=== PATIENT | female | born 1940 | race Caucasian/White ===

== ENCOUNTER 2017-12-20 23:29 | Emergency (ER) | payer MEDICARE, OTHER ==
[~2017-12-20] VITALS: Ht 152.4 cm; Wt 102.1 kg
[~2017-12-20 23:29] MED LIST: ALBU90OI INH; ALBU90OI6 INH; AZIT250 PO; BENZ100A PO; BP MED; CEPH500 PO; CODGUAEL PO; CYAN1000I IM; CYAN1000I INJ; Cheratussin AC118 ML PO; DULERA 100 MCG/13 GM INH; FLUSAL2505 INH; FLUSAL5005 INH; Flonase 0.05% N16 GM; HYDRA50 PO; HYDRALAZINE HCL PO; LEVSOD100 PO; LOVA20; LOVA40; LOVA40 PO; Levaquin500 MG PO; MECL25 PO; METF500 PO; METO50 PO; METO50ER PO; OXYC5 PO; PRED20 PO; Prednisone10 MG PO; Prednisone50 MG PO; Roxicodone5 MG PO; Synthroid100 MCG; TIOT18; TIOT18 INH; TRAM50 PO; Vibramycin100 MG PO; WARF3 PO; WARF4 PO; Zithromax250 MG PO; Zofran Odt4 MG SL
[2017-12-21] MEDS ORDERED: CLOP75 PO (02:18)
[2017-12-21 02:26] LABS: Source, Urine Clean Catch
[2017-12-21 02:27] LABS: Bilirubin, Urine Neg (Neg); Blood, Urine 5+ (Neg); Glucose Qualitative, Urine Neg (Neg); Ketones, Urine 1+ (Neg); Leukocyte Esterase, Urine 1+ (Neg); Nitrite, Urine Neg (Neg); Protein, Urine 2+ (Neg); Specific Gravity, Urine 1.025 (1.003-1.022); Urobilinogen, Urine NORM (Normal)
[2017-12-21 02:33] LABS: Appearance, Urine Hazy (Clear); Bacteria Rare /hpf; Color, Urine Yellow (P-Yellow); Red Blood Cells, Urine TNTC /hpf (0-2); Squamous Epithelial Cells Rare /hpf (Few); White Blood Cells, Urine 0-2 /hpf (0-5)
[2017-12-21 02:41] LABS: BASOPHILS ABSOLUTE AUTO 0.03 K/mm3 (0.00-0.23); BASOPHILS PERCENT AUTO 1 % (0-2); EOSINOPHILS ABSOLUTE AUTO 0.01 K/mm3 (0.00-0.68); EOSINOPHILS PERCENT AUTO 0 % (0-6); Hematocrit 34.8 % (33.0-51.0); Hemoglobin 10.9 g/dL (11.5-16.0); IMMATURE GRAN ABSOLUTE AUTO 0.03 K/mm3 (0.00-0.10); IMMATURE GRAN PERCENT AUTO 1 % (0-1); LYMPHOCYTES ABSOLUTE AUTO 0.63 K/mm3 (0.84-5.20); LYMPHOCYTES PERCENT AUTO 10 % (21-46); MONOCYTES ABSOLUTE AUTO 0.57 K/mm3 (0.16-1.47); MONOCYTES PERCENT AUTO 9 % (4-13); Mean Corpuscular HGB 29.1 pg (26.0-34.0); Mean Corpuscular HGB Conc 31.3 g/dL (31.5-36.5); Mean Corpuscular Volume 93 fL (80-100); Mean Platelet Volume 9.2 fL (9.1-12.4); NEUTROPHILS PERCENT AUTO 79 % (41-73); Platelet Count 190 K/mm3 (150-400); RDW Coefficient Variation 13.4 % (11.7-14.2); RDW Standard Deviation 45.7 fL (35.1-46.3); Red Blood Cell Count 3.74 M/mm3 (3.80-5.20); White Blood Cell Count 6.17 K/mm3 (4.00-11.30)
[2017-12-21 02:56] LABS: Alanine Aminotransfer (ALT/SGP 16 U/L (12-78); Albumin, Blood 3.2 g/dL (3.4-5.0); Albumin/Globulin Ratio 0.9 (0.8-1.8); Alk Phos 81 U/L (50-136); Anion Gap 5 mmol/L (6-16); Aspartate Aminotrans (AST/SGOT 18 U/L (12-37); Bilirubin, Total 0.4 mg/dL (0.1-1.0); Blood Urea Nitrogen 11 mg/dL (8-24); Bun/Creatinine Ratio 11.6 (12.0-20.0); CO2, Blood 31 mmol/L (21-32); Calcium, Blood 8.5 mg/dL (8.5-10.1); Chloride, Blood 105 mmol/L (98-108); Creatinine, Blood 0.95 mg/dL (0.40-1.00); Globulin, Blood 3.6 g/dL (2.2-4.0); Glomerular Filtration Rate >60 (60-); Glucose, Blood 125 mg/dL (70-99); Potassium, Blood 4.1 mmol/L (3.5-5.5); Sodium, Blood 141 mmol/L (136-145); Total Protein, Blood 6.8 g/dL (6.4-8.2)
[2017-12-21] MEDS ORDERED: Flomax0.4 MG PO (06:14)
[2017-12-21] MEDS ORDERED: Percocet 5-3251 EACH PO (06:14)
[2017-12-21] MEDS ORDERED: Ultram50 MG PO (06:53)
== END 2017-12-21 07:12 | disposition home or self-care (01) ==
LOC: ER 23:29
PROVIDERS: Emergency Medicine
DX: N13.2 Hydronephrosis with renal and ureteral calculous obstruction (principal); J44.9 Chronic obstructive pulmonary disease, unspecified; Z91.048 Other nonmedicinal substance allergy status; Z91.030 Bee allergy status; Z88.0 Allergy status to penicillin; Z88.5 Allergy status to narcotic agent; Z88.8 Allergy status to other drugs, medicaments and biological substances; Z88.4 Allergy status to anesthetic agent; Z79.899 Other long term (current) drug therapy
CPT/HCPCS: 74176; 80053; 81001; 85025; 87086; 96374; 99284; J1885

== ENCOUNTER 2018-07-26 18:01 | Emergency (ER) | payer MEDICARE, OTHER ==
[~2018-07-26] VITALS: Ht 157.5 cm; Wt 99.8 kg
[~2018-07-26 18:01] MED LIST changes: +CLOP75 PO; +Flomax0.4 MG PO; +Percocet 5-3251 EACH PO; +Ultram50 MG PO
[2018-07-26 18:52] LABS: BASOPHILS ABSOLUTE AUTO 0.02 K/mm3 (0.00-0.23); BASOPHILS PERCENT AUTO 1 % (0-2); EOSINOPHILS ABSOLUTE AUTO 0.27 K/mm3 (0.00-0.68); EOSINOPHILS PERCENT AUTO 9 % (0-6); Hematocrit 34.9 % (33.0-51.0); Hemoglobin 10.6 g/dL (11.5-16.0); IMMATURE GRAN ABSOLUTE AUTO 0.01 K/mm3 (0.00-0.10); IMMATURE GRAN PERCENT AUTO 0 % (0-1); LYMPHOCYTES ABSOLUTE AUTO 0.75 K/mm3 (0.84-5.20); LYMPHOCYTES PERCENT AUTO 24 % (21-46); MONOCYTES ABSOLUTE AUTO 0.55 K/mm3 (0.16-1.47); MONOCYTES PERCENT AUTO 17 % (4-13); Mean Corpuscular HGB 27.9 pg (26.0-34.0); Mean Corpuscular HGB Conc 30.4 g/dL (31.5-36.5); Mean Corpuscular Volume 92 fL (80-100); Mean Platelet Volume 8.9 fL (9.1-12.4); NEUTROPHILS ABSOLUTE AUTO 1.56 K/mm3 (1.96-9.15); NEUTROPHILS PERCENT AUTO 50 % (41-73); Platelet Count 163 K/mm3 (150-400); RDW Coefficient Variation 13.5 % (11.7-14.2); RDW Standard Deviation 45.9 fL (35.1-46.3); White Blood Cell Count 3.16 K/mm3 (4.00-11.30)
[2018-07-26 19:23] LABS: Albumin, Blood 3.3 g/dL (3.4-5.0); Albumin/Globulin Ratio 0.9 (0.8-1.8); Bilirubin, Total 0.4 mg/dL (0.1-1.0); Bun/Creatinine Ratio 17.4 (12.0-20.0); Calcium, Blood 8.5 mg/dL (8.5-10.1); Creatinine, Blood 1.09 mg/dL (0.40-1.00); Globulin, Blood 3.5 g/dL (2.2-4.0); Potassium, Blood 4.4 mmol/L (3.5-5.5); Total Protein, Blood 6.8 g/dL (6.4-8.2)
[2018-07-26] MEDS ORDERED: Zithromax250 MG PO (19:34)
[2018-07-26] MEDS ORDERED: Ultram50 MG PO (19:34)
== END 2018-07-26 19:54 | disposition home or self-care (01) ==
LOC: ER 18:01
PROVIDERS: Emergency Medicine
DX: S00.83XA Contusion of other part of head, initial encounter (principal); S60.222A Contusion of left hand, initial encounter; S60.012A Contusion of left thumb without damage to nail, initial encounter; S50.811A Abrasion of right forearm, initial encounter; J40 Bronchitis, not specified as acute or chronic; J44.9 Chronic obstructive pulmonary disease, unspecified; Z91.048 Other nonmedicinal substance allergy status; Z91.030 Bee allergy status; Z88.0 Allergy status to penicillin; Z88.6 Allergy status to analgesic agent; Z88.8 Allergy status to other drugs, medicaments and biological substances; Z79.899 Other long term (current) drug therapy; Z79.01 Long term (current) use of anticoagulants; Z79.51 Long term (current) use of inhaled steroids; W19.XXXA Unspecified fall, initial encounter
CPT/HCPCS: 70450; 71046; 73130; 80053; 85025; 99284-25

== ENCOUNTER 2018-07-27 17:53 | Emergency (ER) | payer MEDICARE, OTHER ==
[~2018-07-27] VITALS: Ht 157.5 cm; Wt 99.8 kg
== END 2018-07-27 18:24 | disposition home or self-care (01) ==
LOC: ER 17:53
DX: S52.592A Other fractures of lower end of left radius, initial encounter for closed fracture (principal); S52.612A Displaced fracture of left ulna styloid process, initial encounter for closed fracture; J44.9 Chronic obstructive pulmonary disease, unspecified; Z91.048 Other nonmedicinal substance allergy status; Z91.030 Bee allergy status; Z88.0 Allergy status to penicillin; Z88.8 Allergy status to other drugs, medicaments and biological substances; Z88.6 Allergy status to analgesic agent; Z79.899 Other long term (current) drug therapy; X58.XXXA Exposure to other specified factors, initial encounter
CPT/HCPCS: 29105; 99283-25

== ENCOUNTER 2018-08-05 19:40 | Emergency (ER) | payer MEDICARE, OTHER ==
[~2018-08-05] VITALS: Ht 152.4 cm; Wt 98.0 kg
[2018-08-05 20:09] LABS: BASOPHILS ABSOLUTE AUTO 0.02 K/mm3 (0.00-0.23); BASOPHILS PERCENT AUTO 0 % (0-2); EOSINOPHILS PERCENT AUTO 4 % (0-6); Hemoglobin 11.1 g/dL (11.5-16.0); IMMATURE GRAN ABSOLUTE AUTO 0.02 K/mm3 (0.00-0.10); IMMATURE GRAN PERCENT AUTO 0 % (0-1); LYMPHOCYTES ABSOLUTE AUTO 0.97 K/mm3 (0.84-5.20); LYMPHOCYTES PERCENT AUTO 20 % (21-46); MONOCYTES ABSOLUTE AUTO 0.53 K/mm3 (0.16-1.47); MONOCYTES PERCENT AUTO 11 % (4-13); Mean Corpuscular HGB 27.8 pg (26.0-34.0); Mean Corpuscular HGB Conc 30.8 g/dL (31.5-36.5); Mean Corpuscular Volume 90 fL (80-100); Mean Platelet Volume 9.1 fL (9.1-12.4); NEUTROPHILS ABSOLUTE AUTO 3.02 K/mm3 (1.96-9.15); NEUTROPHILS PERCENT AUTO 64 % (41-73); Platelet Count 222 K/mm3 (150-400); RDW Coefficient Variation 13.1 % (11.7-14.2); RDW Standard Deviation 43.3 fL (35.1-46.3); Red Blood Cell Count 3.99 M/mm3 (3.80-5.20); White Blood Cell Count 4.76 K/mm3 (4.00-11.30)
[2018-08-05 20:24] LABS: Albumin, Blood 3.4 g/dL (3.4-5.0); Albumin/Globulin Ratio 0.9 (0.8-1.8); Bilirubin, Total 0.3 mg/dL (0.1-1.0); Bun/Creatinine Ratio 14.4 (12.0-20.0); Creatinine, Blood 1.04 mg/dL (0.40-1.00); Globulin, Blood 3.8 g/dL (2.2-4.0); Potassium, Blood 3.9 mmol/L (3.5-5.5); Total Protein, Blood 7.2 g/dL (6.4-8.2)
[2018-08-06] MEDS ORDERED: Levaquin500 MG PO (00:56)
[2018-08-06 00:57] LABS: Influenza A Negative (NEGATIVE); Influenza B Negative (NEGATIVE)
== END 2018-08-06 01:15 | disposition home or self-care (01) ==
LOC: ER 19:40
PROVIDERS: Emergency Medicine
DX: R06.02 Shortness of breath (principal); R05 Cough; J44.9 Chronic obstructive pulmonary disease, unspecified; Z91.09 Other allergy status, other than to drugs and biological substances; Z91.048 Other nonmedicinal substance allergy status; Z88.0 Allergy status to penicillin; Z88.6 Allergy status to analgesic agent; Z88.8 Allergy status to other drugs, medicaments and biological substances; Z91.030 Bee allergy status; Z88.4 Allergy status to anesthetic agent; Z79.899 Other long term (current) drug therapy; Z79.51 Long term (current) use of inhaled steroids
CPT/HCPCS: 36415; 71046; 80053; 85025; 87804; 99283-25

== ENCOUNTER 2019-03-11 07:29 | Emergency (ER) | payer MEDICARE, OTHER ==
[~2019-03-11] VITALS: Ht 154.9 cm; Wt 99.8 kg
[2019-03-11] MEDS ORDERED: XARELTO20 MG PO (07:47)
[2019-03-11] MEDS ORDERED: SOLI5 PO (07:47)
[2019-03-11] MEDS ORDERED: SYNTHROID112 MCG PO (07:48)
[2019-03-11] MEDS ORDERED: LETR2.5 PO (07:49)
[2019-03-11] MEDS ORDERED: Cyclobenzaprine5 MG PO (08:09)
[2019-03-11] MEDS ORDERED: LIDO700A20 TOP (08:09)
[2019-03-11] MEDS ORDERED: MOTION RELIEF25 MG PO (08:13)
== END 2019-03-11 08:31 | disposition home or self-care (01) ==
LOC: ER 07:29
DX: M62.830 Muscle spasm of back (principal); Z91.048 Other nonmedicinal substance allergy status; Z88.8 Allergy status to other drugs, medicaments and biological substances; Z88.0 Allergy status to penicillin; Z88.1 Allergy status to other antibiotic agents; Z91.030 Bee allergy status; Z88.6 Allergy status to analgesic agent; Z79.899 Other long term (current) drug therapy; J44.9 Chronic obstructive pulmonary disease, unspecified
CPT/HCPCS: 99283

== ENCOUNTER 2019-05-26 10:30 | Day surgery (SDC) | payer MEDICARE, OTHER ==
[~2019-05-26] VITALS: Ht 157.5 cm; Wt 96.8 kg
[~2019-05-26 10:30] MED LIST changes: +Cyclobenzaprine5 MG PO; +LETR2.5 PO; +LIDO700A20 TOP; +MOTION RELIEF25 MG PO; +SOLI5 PO; +SYNTHROID112 MCG PO; +XARELTO20 MG PO
--- NOTE | 2019-05-26 11:42 | NUR ---
05/26/19 1142 Aisha Puentes NO [place] JELLY WAS USED DURING THIS PROCEDURE DUE TO THE PATIENTS SEVERE ALLERGY. DR WEST WAS INFORMED AND HE ASKED FOR LIDOCAINE JELLY, WHICH I PULLED FROM THE XIS AND WE COMPARED THE INGREDIENTS AND HE IS CONFIDENT THERE SHOULD BE NO PROBLEMS THE INGREDIENTS ARE DIFFERENT SO PROCEDURE WAS COMPLETED USING LIDOCAINE JELLY IN PLACE OF THE [place] JELLY
== END 2019-05-26 12:36 | disposition home or self-care (01) ==
LOC: ORSCSDS 10:30
PROVIDERS: Internal Medicine Gastroenterology
PROC: 0DB58ZX Excision of Esophagus, Via Natural or Artificial Opening Endoscopic, Diagnostic (ICD-10-PCS; principal; 2019-05-26 11:45)
PROC: 0DB68ZX Excision of Stomach, Via Natural or Artificial Opening Endoscopic, Diagnostic (ICD-10-PCS; principal; 2019-05-26 11:45)
PROC: 0D758ZZ Dilation of Esophagus, Via Natural or Artificial Opening Endoscopic (ICD-10-PCS; principal; 2019-05-26 11:45)
DX: R13.10 Dysphagia, unspecified (principal); K29.70 Gastritis, unspecified, without bleeding; K22.2 Esophageal obstruction; K44.9 Diaphragmatic hernia without obstruction or gangrene; I10 Essential (primary) hypertension; J44.9 Chronic obstructive pulmonary disease, unspecified; Z99.81 Dependence on supplemental oxygen; E78.00 Pure hypercholesterolemia, unspecified; Z79.899 Other long term (current) drug therapy
CPT/HCPCS: 88305; 88342; C1726; J2704; J7120

== ENCOUNTER 2019-06-26 18:17 | Emergency (ER) | payer MEDICARE, OTHER ==
[~2019-06-26] VITALS: Ht 152.4 cm; Wt 94.8 kg
[2019-06-26 18:39] LABS: BASOPHILS ABSOLUTE AUTO 0.01 K/mm3 (0.00-0.23); BASOPHILS PERCENT AUTO 0 % (0-2); EOSINOPHILS ABSOLUTE AUTO 0.22 K/mm3 (0.00-0.68); EOSINOPHILS PERCENT AUTO 4 % (0-6); Hematocrit 32.8 % (33.0-51.0); Hemoglobin 9.7 g/dL (11.5-16.0); IMMATURE GRAN ABSOLUTE AUTO 0.01 K/mm3 (0.00-0.10); IMMATURE GRAN PERCENT AUTO 0 % (0-1); LYMPHOCYTES ABSOLUTE AUTO 0.77 K/mm3 (0.84-5.20); LYMPHOCYTES PERCENT AUTO 15 % (21-46); MONOCYTES ABSOLUTE AUTO 0.38 K/mm3 (0.16-1.47); MONOCYTES PERCENT AUTO 8 % (4-13); Mean Corpuscular HGB 25.9 pg (26.0-34.0); Mean Corpuscular HGB Conc 29.6 g/dL (31.5-36.5); Mean Corpuscular Volume 88 fL (80-100); Mean Platelet Volume 9.1 fL (9.1-12.4); NEUTROPHILS ABSOLUTE AUTO 3.61 K/mm3 (1.96-9.15); NEUTROPHILS PERCENT AUTO 72 % (41-73); Platelet Count 215 K/mm3 (150-400); RDW Standard Deviation 48.3 fL (35.1-46.3); Red Blood Cell Count 3.75 M/mm3 (3.80-5.20)
[2019-06-26 18:56] LABS: Albumin, Blood 3.2 g/dL (3.4-5.0); Albumin/Globulin Ratio 0.8 (0.8-1.8); Bilirubin, Total 0.2 mg/dL (0.1-1.0); Calcium, Blood 9.1 mg/dL (8.5-10.1); Creatinine, Blood 1.27 mg/dL (0.40-1.00); Globulin, Blood 3.9 g/dL (2.2-4.0); Potassium, Blood 4.2 mmol/L (3.5-5.5); Total Protein, Blood 7.1 g/dL (6.4-8.2)
[2019-06-26 19:20] LABS: Source, Urine Clean Catch
[2019-06-26 19:27] LABS: Bilirubin, Urine Neg (Neg); Blood, Urine 4+ (Neg); Glucose Qualitative, Urine Neg (Neg); Ketones, Urine Neg (Neg); Leukocyte Esterase, Urine 3+ (Neg); Nitrite, Urine Pos (Neg); Protein, Urine 2+ (Neg); Urobilinogen, Urine NORM (Normal)
[2019-06-26 19:42] LABS: Appearance, Urine Clear (Clear); Color, Urine Yellow (P-Yellow)
[2019-06-26 19:44] LABS: Bacteria Many /hpf; Red Blood Cells, Urine 50-100 /hpf (0-2); Squamous Epithelial Cells Not Seen /hpf (Few); White Blood Cells, Urine 50-100 /hpf (0-5)
[2019-06-26] MEDS ORDERED: CEPH500 PO (20:38)
[2019-06-27] MEDS ORDERED: Cephalexin500 MG PO (23:59)
== END 2019-06-26 21:00 | disposition home or self-care (01) ==
LOC: ER 18:17
PROVIDERS: Physician Assistant
DX: N39.0 Urinary tract infection, site not specified (principal); J44.9 Chronic obstructive pulmonary disease, unspecified; Z88.0 Allergy status to penicillin; Z79.899 Other long term (current) drug therapy
CPT/HCPCS: 36415; 74177; 80053; 81001; 83690; 85025; 87077; 87086; 87186; 96374-59; 99284-25; J2405; Q9967

== ENCOUNTER 2019-06-27 19:22 | Observation (INO) | payer MEDICARE, OTHER ==
[~2019-06-27] VITALS: Ht 152.4 cm; Wt 94.0 kg
[2019-06-27] MEDS ORDERED: Cephalexin500 MG PO (23:59)
--- NOTE | 2019-06-28 00:35 | NUR ---
PT ARRIVES TO ICU 12 VIA GURNEY FROM ER. STATES THAT SHE IS VERY INDEPENDENT AND REQUESTS TO STAND TO TRANSFER TO BED. STANDS TO TRANSFER WITH STEADY GAIT AND TOLERATES WELL. SHE STATES THAT HER THROAT IS SORE AND THAT THE PAIN IS TOLERABLE WHEN SHE IS NOT COUGHING OR SPEAKING, SHE RATES 3-4/10 AT REST. VOICE QUALITY IS HOARSE, PT IS NOTED TO SPEAK IN FULL SENTANCES, NO INCREASED WORK OF BREATHING IS NOTED WITH STAND TO TRANSFER TO BED, PT DOES INTERMITTENTLY COUGH AND PRODUCE ORAL SECRETIONS THAT SHE SPITS INTO EMESIS BAG IN SMALL AMOUNTS, LUNGS ARE CLEAR THROUGHOUT, SATS ARE MAINTAINING WITH OXYGEN AT 2 L/MIN VIA NC. HRR, SINUS ON MONITOR, OCCASIONAL PVC IS NOTED, BLOOD PRESSURE IS MAINTAINING, NO EDEMA IS NOTED, CAP REFILL IS BRISK, PULSES ARE FULL X 4 EXTREMITIES, HYPERPIGMENTATION IS NOTED BILATERAL LOWER EXTREMITIES. ABD DISTENDED AND SOFT, ACTIVE BOWEL TONES ARE NOTED, NO GUARDING WITH PALPATION. PLAN OF CARE EXPLAINED TO PT AND GRANDDAUGHTER, UNDERSTANDING IS VERBALIZED.
[2019-06-28] MEDS ORDERED: VITAMIN D35000 UNIT PO (01:03)
[2019-06-28] MEDS ORDERED: CALCIUM PO (01:04)
[2019-06-28 03:34] LABS: Bun/Creatinine Ratio 17.2 (12.0-20.0); Calcium, Blood 8.2 mg/dL (8.5-10.1); Creatinine, Blood 1.16 mg/dL (0.40-1.00); Potassium, Blood 4.4 mmol/L (3.5-5.5)
--- NOTE | 2019-06-28 06:50 | NUR ---
PT NEW ADMIT THIS SHIFT FOR ANGIOEDEMA FOLLOWING RECENT KEFLEX RX FOR UTI. SWELLING TO UPPER LIP HAS IMPROVED SINCE ADMISSION AT WHICH TIME PT AND GRANDDAUGHTER BOTH REPORTED THAT THE SWELLING WAS MARKEDLY IMPROVED FROM ARRIVAL TO ER. PT STATES THAT SWALLOWING IS IMPROVING BUT THAT SHE HAS ONLY BEEN ABLE TO SWALLOW VERY SMALL SIPS OF WATER OCCASIONALLY, SHE REQUESTED LEVOTHROID BE HELD FOR A COUPLE OF HOURS THIS AM SHE WOULD LIKE TO TAKE MEDICATION BUT DOES NOT FEEL COMFORTABLE SWALLOWING ANYTHING WITH MORE CONSISTENCY THAN WATER AT THIS TIME. VOICE QUALITY REMAINS HOARSE AND PT REPORTS SORE THROAT WITH ATTEMPT TO SPEAK OR COUGH, CEPACOL LOZENGES WERE REQUESTED AND ORDERED, PT TOLERATED WELL AND REPORTS IMPROVED PAIN CONTROL FOLLOWING ADMINISTRATION. SHE DENIES A HISTORY OF OBSTRUCTIVE SLEEP APNEA ALTHOUGH SHE STATES THAT SHE DOES SNORE, BRIEF PERIODS OF APNEA ARE NOTED THIS SHIFT. LUNGS REMAIN CLEAR THROUGHOUT, SATS ARE MID TO UPPER 90S WITH OXYGEN AT HOME FLOW RATE OF 2 L/MIN VIA NC WHILE PT IS AWAKE, NOTED TO DECREASE TO 80S FOR DURATIONS LESS THAN 20 SECONDS WITH SLEEP, TITRATED OXYGEN UP TO 3 L/MIN WITH IMPROVED SATS TO 90S WITH SLEEP. HRR, OCCASIONAL PVCS ARE NOTED, PRESSURE MAINTAINING. ABD SOFT, PT CONTINUES TO DENY NAUSEA. UP TO TOILET WITH LIMP NOTED TO RIGHT LOWER EXTREMITY, TOLERATES WELL WITH STANDBY ASSIST AND VOIDS CLEAR MEL URINE.
--- NOTE | 2019-06-28 09:27 | NUR ---
PT UP TO COMMODE WITH MINIMAL ASSIST TO VOID. NO REAL RESP DISTRESS NOTED AND PT REMAINS ON HER NC AT 3L. PT HAS SOME HARSHNESS TO HER VOICE BUT INDICATES THAT HER THROAT FEELS BETTER AND ONLY HAS A FEELING OF SWELLING IN HER HASAL PASSAGES. VSS. DECLINES PO MEDS AT THIS TIME.
--- NOTE | 2019-06-28 12:02 | NUR ---
PT IS SWALLOWING SMALL AMOUNTS OF LIQUID AND PUDDING IN AN EFFORT TO GET PO MEDS DOWN. SHE WILL COUGH DUE TO MEDS NOT PASSING THROUGH NARROW AREA IN THROAT BUT IS NOT "CHOKING" ON LIQUIDS OR MEDS. PT WILL PROCCED SLOWLY AND WILL MONITOR PER THIS RN. PT IS GETTING UP AND DOWN TO TOILET W/O DISTRESS.
--- NOTE | 2019-06-28 15:41 | NUR ---
REPORT CALLED TO [facility]IS MANUEL PRESSLEY ON SURG. FLOOR AND WILL TRANSPORT TO 229 VIA W/C MANUEL.
--- NOTE | 2019-06-28 16:40 | NUR ---
1630 PT TO SURG FLOOR VIA W/C WITH C/O DIFFICULTY BREATHING AND NO NEW EVIDENCE OF CHANGES AT THIS TIME.
--- NOTE | 2019-06-28 16:52 | NUR ---
PT ARRIVED TO ROOM FROM ICU STATES FEEL LIKES "THINGS ARE GOING BACKWARDS." STATES HAVING INCREASED DIFFICULTY SWALLOWING, FEELS SOB, HANDS ARE SHAKING AND VISION IS BLURRED. LUNGS CLEAR BUT DIM IN BASES. PT HOARSE BUT ABLE TO SPEAK IN COMPLETE SENTENCES. HRR. BTX4. DEMONSTRATED DIFFICULTY SWALLOWING WATER, STATED TOOK SEVERAL ATTEMPTS TO GET SIP DOWN. NOW RESTING IN BED, TEXTING FAMILY. CALL LIGHT IN REACH.
--- NOTE | 2019-06-28 17:30 | NUR ---
CALLED DR NASCIMENTO REGARDING PT'S CONCERNS RELAYED TO DR NASCIMENTO PT BELIEVED SYMPTOMS WORSENING AFTER REC'D IV CIPRO. ORDERS OBTAINED TO CHANGE TO PO MACROBID. PT BECAME ANGRY WHEN ADVISED THAT DR NASCIMENTO CHANGING TO PO ANTIBIOTICS. STATED SHE WOULD NOT TAKE A PILL BECAUSE SHE DOES NOT BELIEVE SHE CAN SWALLOW IT. ADVISED PT CHOICES ARE LIMITED DUE TO HX OF MULTIPLE ANTIBIOTIC ALLERGIES. ADVISED PT SHE WOULD RECEIVE ANOTHER DOSE OF SOLUMEDROL (WHICH WAS GIVEN PER EMAR) AND ANOTHER DOSE OF BENADRYL THIS EVENING. PT MAY REFUSE PILL DEPENDING ON ABILITY TO SWALLOW AT TIME IT IS ADMINISTERED. RELAYED PT'S CONCERN ABOUT PO ANTIBIOTIC TO DR NASCIMENTO.
--- NOTE | 2019-06-28 18:06 | NUR ---
SWELLING UNDER TONGUE PT REPORTED FEELS SWOLLEN UNDER TONGUE. REPORTS BREATHING IMPROVED AFTER BREATHING TREATMENT AND IS ABLE TO SWALLOW TOMATO SOUP. DOES NOT APPEAR TO BE HAVING ANY DIFFICULTY BREATHING AT THIS TIME.
--- NOTE | 2019-06-29 06:02 | NUR ---
PT VSS T/O NIGHT. SATS >90% ON 2LNC. PT DENIED SOB OR SWALLOWING DIFFICULTY. NO SWELLING NOTED IN FACE OR TONGUE, VOICE REMAINS HOARSE. NO ADVERSE EFFECTS REPORTED AFTER TAKING MACROBID THIS PM. PT VOIDING ORANGE URINE, PT DENIES PAIN W/VOID. PT UP OOB W/WALKER +SBA, YRN WELL. PT USING CALL LIGHT FOR ASSISTANCE, WILL CONT TO MONITOR UNTIL REP GIVEN TO DAY RN.
[2019-06-29 09:50] LABS: BASOPHILS PERCENT AUTO 0 % (0-2); EOSINOPHILS PERCENT AUTO 0 % (0-6); Hematocrit 31.8 % (33.0-51.0); Hemoglobin 9.7 g/dL (11.5-16.0); IMMATURE GRAN ABSOLUTE AUTO 0.01 K/mm3 (0.00-0.10); IMMATURE GRAN PERCENT AUTO 0 % (0-1); LYMPHOCYTES ABSOLUTE AUTO 0.27 K/mm3 (0.84-5.20); LYMPHOCYTES PERCENT AUTO 10 % (21-46); MONOCYTES ABSOLUTE AUTO 0.27 K/mm3 (0.16-1.47); MONOCYTES PERCENT AUTO 10 % (4-13); Mean Corpuscular HGB 25.5 pg (26.0-34.0); Mean Corpuscular HGB Conc 30.5 g/dL (31.5-36.5); Mean Platelet Volume 9.5 fL (9.1-12.4); NEUTROPHILS ABSOLUTE AUTO 2.08 K/mm3 (1.96-9.15); NEUTROPHILS PERCENT AUTO 79 % (41-73); Platelet Count 183 K/mm3 (150-400); RDW Coefficient Variation 15.5 % (11.7-14.2); RDW Standard Deviation 47.4 fL (35.1-46.3); White Blood Cell Count 2.63 K/mm3 (4.00-11.30)
[2019-06-29 09:51] LABS: Mean Corpuscular Volume 84 fL (80-100)
[2019-06-29] MEDS ORDERED: ALBU90OI INH (18:07)
[2019-06-29] MEDS ORDERED: BENADRYL25 MG PO (18:07)
[2019-06-29] MEDS ORDERED: CEPACOL SORE T1 EACH (18:07)
[2019-06-29] MEDS ORDERED: Florastor250 MG PO (18:08)
[2019-06-29] MEDS ORDERED: Prednisone10 MG PO (18:08)
[2019-06-29] MEDS ORDERED: NITR100CA PO (18:08)
[2019-06-29] MEDS ORDERED: FAMO40 PO (18:08)
[2019-06-29] MEDS ORDERED: TROSPIUM CHLORI20 MG PO (18:09)
== END 2019-06-29 19:31 | disposition home or self-care (01) ==
LOC: ER 19:22 → ICUW 23:46 → SURS 23:46 → ICUW 06-28 00:24 → SURS 06-28 16:50
PROVIDERS: Family Medicine; ADMIT Hospitalist
DX: T78.3XXA Angioneurotic edema, initial encounter (principal); T36.1X5A Adverse effect of cephalosporins and other beta-lactam antibiotics, initial encounter; J44.9 Chronic obstructive pulmonary disease, unspecified; E03.9 Hypothyroidism, unspecified; N39.0 Urinary tract infection, site not specified; B96.1 Klebsiella pneumoniae [K. pneumoniae] as the cause of diseases classified elsewhere; I10 Essential (primary) hypertension; D64.9 Anemia, unspecified; I82.409 Acute embolism and thrombosis of unspecified deep veins of unspecified lower extremity; Z88.6 Allergy status to analgesic agent; Z88.0 Allergy status to penicillin; Z88.8 Allergy status to other drugs, medicaments and biological substances; Z88.1 Allergy status to other antibiotic agents; Z79.899 Other long term (current) drug therapy
CPT/HCPCS: 36415; 80048; 85025; 94640; 94760; 96365; 96366; 96372-59; 96374; 96375; 96376; 99285-25; G0378; J0171; J0744; J1200; J2060; J2930

== ENCOUNTER → 2019-10-13 | Outpatient (CLI) | payer MEDICARE, OTHER ==
[~2019-10-13] MED LIST changes: +BENADRYL25 MG PO; +CALCIUM PO; +CEPACOL SORE T1 EACH; +Cephalexin500 MG PO; +FAMO40 PO; +Florastor250 MG PO; +NITR100CA PO; +TROSPIUM CHLORI20 MG PO; +VITAMIN D35000 UNIT PO
== END | disposition home or self-care (01) ==
LOC: LAB 17:45 → LAB SHORT 17:45
DX: J02.9 Acute pharyngitis, unspecified (principal)
CPT/HCPCS: 87081

== ENCOUNTER 2021-04-22 18:04 | Emergency (ER) | payer MEDICARE, OTHER ==
[~2021-04-22] VITALS: Ht 152.4 cm; Wt 77.1 kg
== END 2021-04-22 21:52 | disposition home or self-care (01) ==
LOC: ER 18:04
DX: R22.0 Localized swelling, mass and lump, head (principal); R06.02 Shortness of breath; T47.4X5A Adverse effect of other laxatives, initial encounter; J44.9 Chronic obstructive pulmonary disease, unspecified; Z88.1 Allergy status to other antibiotic agents; Z88.0 Allergy status to penicillin; Z79.01 Long term (current) use of anticoagulants
CPT/HCPCS: 96374; 96375; 99284-25; J1200; J2930

== ENCOUNTER 2021-07-21 17:23 | Emergency (ER) | payer MEDICARE, OTHER ==
[~2021-07-21] VITALS: Ht 157.5 cm; Wt 72.1 kg
[2021-07-21] MEDS ORDERED: ONDA4ODT MM (17:48)
[2021-07-21] MEDS ORDERED: Tessalon Perle100 MG PO (17:48)
== END 2021-07-21 20:02 | disposition home or self-care (01) ==
LOC: ER 17:23
DX: U07.1 COVID-19 (principal); J44.9 Chronic obstructive pulmonary disease, unspecified; E03.9 Hypothyroidism, unspecified; Z23 Encounter for immunization; Z91.048 Other nonmedicinal substance allergy status; Z88.1 Allergy status to other antibiotic agents; Z88.6 Allergy status to analgesic agent; Z88.0 Allergy status to penicillin; Z91.030 Bee allergy status; Z79.899 Other long term (current) drug therapy; Z99.81 Dependence on supplemental oxygen; Z86.718 Personal history of other venous thrombosis and embolism
CPT/HCPCS: 96361; 96375; 99284-25; A9270; J2405; M0243; Q0243

== ENCOUNTER → 2021-12-29 | Outpatient (CLI) | payer MEDICARE, OTHER ==
[~2021-12-29] MED LIST changes: +ONDA4ODT MM; +Tessalon Perle100 MG PO
== END ==
LOC: LAB SHORT 15:00
DX: R30.9 Painful micturition, unspecified (principal)
CPT/HCPCS: 87086

== ENCOUNTER → 2022-01-13 | Outpatient (CLI) | payer MEDICARE, OTHER | END | disposition home or self-care (01) | LOC: LAB SHORT 14:20 | DX: R35.0 Frequency of micturition (principal) | CPT/HCPCS: 87086 ==

== ENCOUNTER 2022-09-17 12:49 | Emergency (ER) | payer MEDICARE, OTHER ==
[~2022-09-17] VITALS: Ht 152.4 cm; Wt 78.0 kg
[2022-09-17 13:23] LABS: BASOPHILS ABSOLUTE AUTO 0.02 K/mm3 (0.00-0.23); BASOPHILS PERCENT AUTO 1 % (0-2); EOSINOPHILS ABSOLUTE AUTO 0.16 K/mm3 (0.00-0.68); EOSINOPHILS PERCENT AUTO 5 % (0-6); Hematocrit 46.1 % (33.0-51.0); Hemoglobin 14.8 g/dL (11.5-16.0); IMMATURE GRAN PERCENT AUTO 0 % (0-1); LYMPHOCYTES ABSOLUTE AUTO 0.82 K/mm3 (0.84-5.20); LYMPHOCYTES PERCENT AUTO 25 % (21-46); MONOCYTES PERCENT AUTO 18 % (4-13); Mean Corpuscular HGB 29.1 pg (26.0-34.0); Mean Corpuscular HGB Conc 32.1 g/dL (31.5-36.5); Mean Corpuscular Volume 91 fL (80-100); NEUTROPHILS ABSOLUTE AUTO 1.73 K/mm3 (1.96-9.15); NEUTROPHILS PERCENT AUTO 52 % (41-73); Platelet Count 122 K/mm3 (150-400); RDW Coefficient Variation 13.2 % (11.7-14.2); RDW Standard Deviation 44.3 fL (35.1-46.3); Red Blood Cell Count 5.08 M/mm3 (3.80-5.20); White Blood Cell Count 3.33 K/mm3 (4.00-11.30)
[2022-09-17] MEDS ORDERED: Ventolin/Prove6.7 GM INH (13:35)
[2022-09-17 13:47] LABS: Albumin, Blood 3.1 g/dL (3.4-5.0); Albumin/Globulin Ratio 0.9 (0.8-1.8); Bilirubin, Total 0.6 mg/dL (0.1-1.0); Bun/Creatinine Ratio 16.7 (12.0-20.0); Calcium, Blood 8.7 mg/dL (8.5-10.1); Creatinine, Blood 1.56 mg/dL (0.40-1.00); Globulin, Blood 3.5 g/dL (2.2-4.0); Potassium, Blood 3.8 mmol/L (3.5-5.5); Total Protein, Blood 6.6 g/dL (6.4-8.2)
[2022-09-17] MEDS ORDERED: Prednisone50 MG PO (14:59)
[2022-09-17] MEDS ORDERED: DOXY100 PO (14:59)
== END 2022-09-17 15:28 | disposition home or self-care (01) ==
LOC: ER 12:49
PROVIDERS: Physician Assistant
DX: J44.0 Chronic obstructive pulmonary disease with (acute) lower respiratory infection (principal); J20.9 Acute bronchitis, unspecified; I10 Essential (primary) hypertension; E03.9 Hypothyroidism, unspecified; Z88.6 Allergy status to analgesic agent; Z88.4 Allergy status to anesthetic agent; Z88.1 Allergy status to other antibiotic agents; Z91.038 Other insect allergy status; Z88.0 Allergy status to penicillin; Z88.8 Allergy status to other drugs, medicaments and biological substances; Z91.048 Other nonmedicinal substance allergy status; Z79.899 Other long term (current) drug therapy; Z99.81 Dependence on supplemental oxygen
CPT/HCPCS: 36415; 71046; 80053; 83880; 84484; 85025; 93005; 93010; A9270; J2930

== ENCOUNTER 2022-10-21 23:44 | Inpatient (IN) | payer MEDICARE, OTHER ==
[~2022-10-21] VITALS: Ht 154.9 cm; Wt 84.6 kg
[~2022-10-21 23:44] MED LIST changes: -CYAN1000I INJ; +CYAN1000I SC; +DOXY100 PO; -SYNTHROID112 MCG PO; +Ventolin/Prove6.7 GM INH
[2022-10-22 00:57] LABS: BASOPHILS ABSOLUTE AUTO 0.04 K/mm3 (0.00-0.23); BASOPHILS PERCENT AUTO 1 % (0-2); EOSINOPHILS ABSOLUTE AUTO 0.04 K/mm3 (0.00-0.68); EOSINOPHILS PERCENT AUTO 1 % (0-6); Hematocrit 41.5 % (33.0-51.0); Hemoglobin 13.5 g/dL (11.5-16.0); IMMATURE GRAN ABSOLUTE AUTO 0.04 K/mm3 (0.00-0.10); IMMATURE GRAN PERCENT AUTO 1 % (0-1); LYMPHOCYTES ABSOLUTE AUTO 1.02 K/mm3 (0.84-5.20); LYMPHOCYTES PERCENT AUTO 14 % (21-46); MONOCYTES ABSOLUTE AUTO 0.54 K/mm3 (0.16-1.47); MONOCYTES PERCENT AUTO 7 % (4-13); Mean Corpuscular HGB 29.7 pg (26.0-34.0); Mean Corpuscular HGB Conc 32.5 g/dL (31.5-36.5); Mean Corpuscular Volume 91 fL (80-100); Mean Platelet Volume 9.1 fL (9.1-12.4); NEUTROPHILS PERCENT AUTO 77 % (41-73); Platelet Count 197 K/mm3 (150-400); RDW Coefficient Variation 14.1 % (11.7-14.2); RDW Standard Deviation 47.6 fL (35.1-46.3); Red Blood Cell Count 4.55 M/mm3 (3.80-5.20); White Blood Cell Count 7.28 K/mm3 (4.00-11.30)
[2022-10-22 01:16] LABS: International Normalized Ratio 1.19; Prothrombin Time Results 12.4 Sec (9.7-11.5)
[2022-10-22 01:16] LABS: Albumin, Blood 3.4 g/dL (3.4-5.0); Bilirubin, Total 0.5 mg/dL (0.1-1.0); Bun/Creatinine Ratio 14.4 (12.0-20.0); Calcium, Blood 9.2 mg/dL (8.5-10.1); Creatinine, Blood 1.25 mg/dL (0.40-1.00); Globulin, Blood 3.5 g/dL (2.2-4.0); Potassium, Blood 4.2 mmol/L (3.5-5.5); Total Protein, Blood 6.9 g/dL (6.4-8.2)
[2022-10-22 02:03] LABS: Influenza A, PCR NEGATIVE (NEGATIVE); Influenza B, PCR NEGATIVE (NEGATIVE); Resp Syncytial Virus, PCR NEGATIVE (NEGATIVE); SARS-Cov-2 (COVID-19) PCR, MMC NEGATIVE (NEGATIVE)
[2022-10-22 05:16] LABS: BASOPHILS ABSOLUTE AUTO 0.03 K/mm3 (0.00-0.23); BASOPHILS PERCENT AUTO 0 % (0-2); EOSINOPHILS PERCENT AUTO 0 % (0-6); Hematocrit 40.1 % (33.0-51.0); Hemoglobin 12.8 g/dL (11.5-16.0); IMMATURE GRAN ABSOLUTE AUTO 0.02 K/mm3 (0.00-0.10); IMMATURE GRAN PERCENT AUTO 0 % (0-1); LYMPHOCYTES ABSOLUTE AUTO 0.74 K/mm3 (0.84-5.20); LYMPHOCYTES PERCENT AUTO 10 % (21-46); MONOCYTES ABSOLUTE AUTO 0.62 K/mm3 (0.16-1.47); MONOCYTES PERCENT AUTO 8 % (4-13); Mean Corpuscular HGB 29.6 pg (26.0-34.0); Mean Corpuscular HGB Conc 31.9 g/dL (31.5-36.5); Mean Corpuscular Volume 93 fL (80-100); Mean Platelet Volume 9.4 fL (9.1-12.4); NEUTROPHILS ABSOLUTE AUTO 5.94 K/mm3 (1.96-9.15); NEUTROPHILS PERCENT AUTO 81 % (41-73); Platelet Count 156 K/mm3 (150-400); RDW Coefficient Variation 14.2 % (11.7-14.2); RDW Standard Deviation 48.5 fL (35.1-46.3); Red Blood Cell Count 4.33 M/mm3 (3.80-5.20); White Blood Cell Count 7.35 K/mm3 (4.00-11.30)
[2022-10-22 05:57] LABS: Anion Gap 7 mmol/L (6-16); Blood Urea Nitrogen 17 mg/dL (8-24); Bun/Creatinine Ratio 14.7 (12.0-20.0); CHOL/HDL RATIO 3.2; CO2, Blood 27 mmol/L (21-32); Calcium, Blood 8.9 mg/dL (8.5-10.1); Chloride, Blood 110 mmol/L (98-108); Cholesterol 190 mg/dL (50-200); Creatinine, Blood 1.16 mg/dL (0.40-1.00); Glomerular Filtration Rate 48 (60-); Glucose, Blood 165 mg/dL (70-99); HDL Cholesterol 60 mg/dL (>39); LDL/HDL RATIO 1.9; Low Density Lipoprotein Chol 116 mg/dL (0-110); Potassium, Blood 4.1 mmol/L (3.5-5.5); Sodium, Blood 144 mmol/L (136-145); Triglycerides 70 mg/dL (30-160); Very Low Density Lipoprot Chol 14 mg/dL (6-32)
[2022-10-22 06:00] LABS: CPK Creatine Kinase 2896 U/L (26-193)
[2022-10-22 07:04] LABS: Creatine Kinase MB 447.9 ng/mL (0.0-3.6); Creatine Kinase MB Index 15.5 (0.0-4.0)
--- NOTE | 2022-10-22 07:18 | NUR ---
ASSUMED CARE PT. ALERT AND ORIENTED THIS AM. PT. DENIES ANY CHEST PAIN OR PRESSURE. PT. TR BAND DEFLATION COMPLETED AT THIS TIME. NO OOZING NOTED AT THIS TIME. SMALL HEMATOMA DIRECTLY ABOVE BAND BUT NON TENDER. PT ACCESS SITE TO RIGHT GROIN WNL, NO HEMATOMA NOTED. DRESSING IN PLACE. UNCHANGED FROM NOC SHIFT PER REPORT. PT. CURRENTLY ON 1LNC, DENIES SOB REPORTS IT IS MORE FOR COMFORT WHEN SLEEPING. VSS THIS AM. PT. ASSISTED TO USE BED HUTTON, NS INFUSING AT THIS TIME, WITH ORDERS TO DC AT 0800. CALL LIGHT IN REACH. ARM BOARD IN PLACE TO RIGHT WRIST, PT EDUCATED ON USE OF RIGHT ARM S/P TR BAND.
--- NOTE | 2022-10-22 11:24 | NUR ---
DR. WESTBROOK IN TO ASSESS PT THIS AM.
[2022-10-22] MEDS ORDERED: JANTOVEN2 MG PO (11:44)
[2022-10-22] MEDS ORDERED: TRELEGY ELLIPT1 EACH INH (11:52)
--- NOTE | 2022-10-22 13:33 | NUR ---
CHEST PRESSURE/SOB PT CALLED RN TO THE ROOM REPORTING SOB AND CHEST PRESSURE. SPO2 WNL, NO CHANGES TO BP OR HEART RATE. EKG DONE AT THIS TIME, PT REPORTS THE SYMPTOMS "COME AND GO". NO SIGNIFICANT CHANGES FROM PREVIOUS EKG THIS AM. CALL TO DR. WESTBROOK TO UPDATE. ORDERS FOR HEPARIN GTT, LASIX AND TORADOL.
--- NOTE | 2022-10-22 14:23 | NUR ---
LABS DRAWN, PER PHARMACY OKAY TO START HEPARIN BAG BUT WAIT TO BOLUS UNTIL LABS ARE BACK. HEPARIN DOSING VERIFIED WITH [facility] PRESS[facility], LASIX AND TORADOL GIVEN. AKUA AT THIS TIME. CALL LIGHT IN REACH.
[2022-10-22 14:32] LABS: Creatine Kinase MB 225.9 ng/mL (0.0-3.6); Creatine Kinase MB Index 10.5 (0.0-4.0)
--- NOTE | 2022-10-22 15:40 | NUR ---
ATTEMPTED PURE WICK PT. NEEDING TO VOID VERY FREQUENTLY, PT REQUESTING BEDPAN HOWEVER HAVING DIFFICULTY OBTAINING I&OS DUE TO VOIDING IN BED WHILE ATTEMPTING TO USE BED HUTTON. ATTEMPTED PUREWICK AND PT DID NOT TOLERATE. FREQUENT LINEN CHANGES AND THOMAS CARE COMPLETED. PT NEEDING FREQUENT REMINDING TO NOT PULL OFF BP CUFF AND NEEDING CONSTANT REMINDING REGARDING LIMITATIONS TO RIGHT RADIAL SITE. PT. CONTINUES TO OCCASIONALLY BECOME SOB. HEPARIN GTT INFUSING.
--- NOTE | 2022-10-22 17:52 | NUR ---
SHIFT SUMMARY PT. REMAINS ALERT AND ORIENTED. OCCASIONALLY REPORTS CHEST PRESSURE AND SOB. DR. WESTBROOK AWARE. PT. RESTARTED ON HEPARIN GTT WITH BOLUS THIS SHIFT AND HOME MEDS RESTARTED WELL. TR BAND REMOVED. MINIMAL HEMATOMA TO SITE. PT NEEDING FREQUENT REMINDING TO LIMITATIONS, ARM BOARD REMAINS IN PLACE. PT. UP TO BEDSIDE COMMODE WITH ASSISTANCE. CALL LIGHT IN REACH. ALL NEEDS MET AT THIS TIME, REPORT TO ONCOMING RN.
[2022-10-22 22:39] LABS: Creatine Kinase MB 86.2 ng/mL (0.0-3.6); Creatine Kinase MB Index 6.3 (0.0-4.0)
--- NOTE | 2022-10-23 04:53 | NUR ---
SHIFT SUMMERY THERE HAVE BEEN NO ACUTE CHANGES OVERNIGHT. HEPARIN GTT REMAINS AT SAME RATE PER ORDER. PT HAS BEEN UP TO THE BEDSIDE COMMODE SEVERAL TIMES, TOLERATED THE ACTIVITY WELL. VS HAVE BEEN STABLE. NO COMPLAINTS OF CHEST PAIN OR SHORTNESS OF BREATH. PT DOES REQUIRE ASSISTANCE W/AMBULATING DUE TO WEAKNESS.
[2022-10-23 05:20] LABS: BASOPHILS ABSOLUTE AUTO 0.03 K/mm3 (0.00-0.23); BASOPHILS PERCENT AUTO 1 % (0-2); EOSINOPHILS ABSOLUTE AUTO 0.07 K/mm3 (0.00-0.68); EOSINOPHILS PERCENT AUTO 1 % (0-6); Hematocrit 36.2 % (33.0-51.0); Hemoglobin 11.9 g/dL (11.5-16.0); IMMATURE GRAN ABSOLUTE AUTO 0.02 K/mm3 (0.00-0.10); IMMATURE GRAN PERCENT AUTO 0 % (0-1); LYMPHOCYTES ABSOLUTE AUTO 1.04 K/mm3 (0.84-5.20); LYMPHOCYTES PERCENT AUTO 21 % (21-46); MONOCYTES ABSOLUTE AUTO 0.69 K/mm3 (0.16-1.47); MONOCYTES PERCENT AUTO 14 % (4-13); Mean Corpuscular HGB 29.8 pg (26.0-34.0); Mean Corpuscular HGB Conc 32.9 g/dL (31.5-36.5); Mean Corpuscular Volume 91 fL (80-100); Mean Platelet Volume 9.3 fL (9.1-12.4); NEUTROPHILS PERCENT AUTO 63 % (41-73); Platelet Count 128 K/mm3 (150-400); RDW Coefficient Variation 14.4 % (11.7-14.2); RDW Standard Deviation 48.1 fL (35.1-46.3); Red Blood Cell Count 3.99 M/mm3 (3.80-5.20); White Blood Cell Count 5.05 K/mm3 (4.00-11.30)
[2022-10-23 05:35] LABS: International Normalized Ratio 1.36
[2022-10-23 06:09] LABS: Bun/Creatinine Ratio 12.2 (12.0-20.0); Calcium, Blood 8.7 mg/dL (8.5-10.1); Creatinine, Blood 1.39 mg/dL (0.40-1.00); Magnesium, Blood 1.7 mg/dL (1.6-2.4); Potassium, Blood 3.5 mmol/L (3.5-5.5)
--- NOTE | 2022-10-23 18:43 | NUR ---
END OF SHIFT SUMMARY PT A/OX4, SR-ST, BP 80'S-110, PER CARDIOLOGY, GOAL IS MAP > 65. ON RA, O2 SAT > 92%, LUNGS CTA ALL FARR. DENIES N/V, BS HYPOACTIVE, CARDIAC DIET, TOLERATING WELL. OOB TO BSC TO VOID CLEAR YELLOW URINE. SKIN UNCHANGED. RIGHT RADIAL AND RIGHT FEMORAL ACCESS SITES UNCHANGED, RADIAL SITE BRUISED, NO HEMATOMA, FEMORAL SITE WITH BLOODY DRAINAIGE, NO NEW BLEEDING. IV TO RIGHT UPPER ARM INFUSING HEPARIN AT 15UNITS/KG/HR, RATE UNCHAGED, NEXT BLOOD DRAW SCHEDULED IN AM. STATUS CHANGED TO PCU BY CARDIOLOGY (DR. OSEI), PLAN IS TO D/C HOME AFTER INR AT GOAL OF >1.8.
[2022-10-24 03:29] LABS: BASOPHILS ABSOLUTE AUTO 0.04 K/mm3 (0.00-0.23); BASOPHILS PERCENT AUTO 1 % (0-2); EOSINOPHILS ABSOLUTE AUTO 0.11 K/mm3 (0.00-0.68); EOSINOPHILS PERCENT AUTO 2 % (0-6); Hematocrit 37.1 % (33.0-51.0); Hemoglobin 12.2 g/dL (11.5-16.0); IMMATURE GRAN ABSOLUTE AUTO 0.03 K/mm3 (0.00-0.10); IMMATURE GRAN PERCENT AUTO 1 % (0-1); LYMPHOCYTES ABSOLUTE AUTO 1.13 K/mm3 (0.84-5.20); LYMPHOCYTES PERCENT AUTO 21 % (21-46); MONOCYTES ABSOLUTE AUTO 0.82 K/mm3 (0.16-1.47); MONOCYTES PERCENT AUTO 16 % (4-13); Mean Corpuscular HGB 29.7 pg (26.0-34.0); Mean Corpuscular HGB Conc 32.9 g/dL (31.5-36.5); Mean Corpuscular Volume 90 fL (80-100); Mean Platelet Volume 9.6 fL (9.1-12.4); NEUTROPHILS ABSOLUTE AUTO 3.15 K/mm3 (1.96-9.15); NEUTROPHILS PERCENT AUTO 60 % (41-73); Platelet Count 141 K/mm3 (150-400); RDW Coefficient Variation 14.1 % (11.7-14.2); RDW Standard Deviation 46.7 fL (35.1-46.3); Red Blood Cell Count 4.11 M/mm3 (3.80-5.20); White Blood Cell Count 5.28 K/mm3 (4.00-11.30)
[2022-10-24 03:56] LABS: International Normalized Ratio 1.86; Prothrombin Time Results 18.8 Sec (9.7-11.5)
[2022-10-24 04:03] LABS: Calcium, Blood 8.7 mg/dL (8.5-10.1); Creatinine, Blood 1.58 mg/dL (0.40-1.00); Potassium, Blood 3.4 mmol/L (3.5-5.5)
--- NOTE | 2022-10-24 06:08 | NUR ---
Shift summary: Pt had an uneventful night. She is alert and oriented x4, follows commands, calls appropriately. Denies any chest pain/pressure overnight. SR with HR in 90s. BP WNL. Rt radial site is WNL w/bruise above site; Rt fem site also WNL. She remains on 1L NC with O2 sat 95% and denies any SOB. She has been up to BSC about 10 times overnight and urinated small amounts each time. She finally had 1 formed BM. Heparin drip remains at 15 units/kg/hr and is therapeutic.
[2022-10-24 10:41] LABS: Bun/Creatinine Ratio 11.8 (12.0-20.0); Calcium, Blood 8.4 mg/dL (8.5-10.1); Creatinine, Blood 1.53 mg/dL (0.40-1.00); Potassium, Blood 3.2 mmol/L (3.5-5.5)
--- NOTE | 2022-10-24 10:54 | NUR ---
BEDSIDE COMMODE ACTIVITY PT UP AND PULSE UP TO 130'S. SHE COMPLAINS OF CONSTIPATION AND STRAINING TO HAVE A BM. SHE DID HAVE A MED SIZE STOOL FORMED AND SOFT NOT HARD STOOLS. BROWN IN COLOR. PT DECLINED PRUNE JUICE.
[2022-10-25 03:53] LABS: BASOPHILS ABSOLUTE AUTO 0.05 K/mm3 (0.00-0.23); BASOPHILS PERCENT AUTO 1 % (0-2); EOSINOPHILS PERCENT AUTO 2 % (0-6); Hematocrit 35.5 % (33.0-51.0); Hemoglobin 11.8 g/dL (11.5-16.0); IMMATURE GRAN ABSOLUTE AUTO 0.03 K/mm3 (0.00-0.10); IMMATURE GRAN PERCENT AUTO 1 % (0-1); LYMPHOCYTES ABSOLUTE AUTO 1.13 K/mm3 (0.84-5.20); LYMPHOCYTES PERCENT AUTO 27 % (21-46); MONOCYTES ABSOLUTE AUTO 0.74 K/mm3 (0.16-1.47); MONOCYTES PERCENT AUTO 17 % (4-13); Mean Corpuscular HGB 29.9 pg (26.0-34.0); Mean Corpuscular HGB Conc 33.2 g/dL (31.5-36.5); Mean Corpuscular Volume 90 fL (80-100); Mean Platelet Volume 9.8 fL (9.1-12.4); NEUTROPHILS ABSOLUTE AUTO 2.22 K/mm3 (1.96-9.15); NEUTROPHILS PERCENT AUTO 52 % (41-73); Platelet Count 146 K/mm3 (150-400); RDW Coefficient Variation 14.2 % (11.7-14.2); RDW Standard Deviation 47.2 fL (35.1-46.3); Red Blood Cell Count 3.94 M/mm3 (3.80-5.20); White Blood Cell Count 4.27 K/mm3 (4.00-11.30)
--- NOTE | 2022-10-25 04:24 | NUR ---
SHIFT SUMMARY PT A&Ox4, CALLS AND COMMUNICATES NEEDS APPROPRIATELY. SpO2> 92% RA, DENIES SOB. BP SOFT, MAP >70, PT ASYMPTOMATIC. SR-ST 80-100's, DENIES CP/PRESSURE. RIGHT RADIAL SITE WITH SMALL AMOUNT OF BRUISING, BRUISE IS SOFT. PT REPORTS MILD DISCOMFORT WHEN PALPATING PROXIMAL TO SITE. NO BLEEDING PRESENT. RIGHT GROIN SITE WITH SMALL AMOUNT IF BLOOD ON DRESSING AT START OF SHIFT, PT DENIES TENDERNESS WHEN PALPATED. NO BRUISING OR HEMATOMA PRESENT. HEPARIN gtt AT 15units/hr. PT SBA TO BSC, CONTINENT OF URINE, NO BM THIS SHIFT. NO ACUTE EVENTS, WILL REPORT TO ONCOMING RN.
[2022-10-25 04:25] LABS: International Normalized Ratio 3.14; Prothrombin Time Results 30.6 Sec (9.7-11.5)
[2022-10-25 04:27] LABS: Bun/Creatinine Ratio 11.1 (12.0-20.0); Calcium, Blood 8.8 mg/dL (8.5-10.1); Creatinine, Blood 1.53 mg/dL (0.40-1.00); Magnesium, Blood 1.7 mg/dL (1.6-2.4); Potassium, Blood 3.8 mmol/L (3.5-5.5); Thyroid Stimulating Hormone 0.64 uIU/mL (0.360-4.800)
[2022-10-25] MEDS ORDERED: SPIR25 PO (13:49)
[2022-10-25] MEDS ORDERED: POTA10T PO (13:50)
[2022-10-25] MEDS ORDERED: PANT40 PO (13:51)
[2022-10-25] MEDS ORDERED: METO50ER PO (13:52)
[2022-10-25] MEDS ORDERED: Prinivil10 MG PO (13:53)
[2022-10-25] MEDS ORDERED: FURO40 PO (13:53)
[2022-10-25] MEDS ORDERED: CLOP75 PO (13:54)
[2022-10-25] MEDS ORDERED: JARDIANCE25 MG PO (13:54)
[2022-10-25] MEDS ORDERED: ATOR80 PO (13:55)
[2022-10-25] MEDS ORDERED: ASPI81CH PO (13:57)
--- NOTE | 2022-10-25 17:17 | NUR ---
1242 - Order received for discharge. Per Dr. Carlos's conversation with Dr. Tena pt ok to discharge if MAPs remain above 65 and able to ambulate safely. BP checked x2 this afternoon and MAP remains above 65. Pt states she feels ready for discharge and BP runs "on the low end". pt ambulating independently and cleared by PT. Discharge paperwork complete by surjit Dia RN and discharge went over with pt and family at bedside. IV's removed. Pt left with belongings but reports missing cane - studio operations engineer in charge notified and not found in ICU or ER. All questions answered and pt and family verbalize understanding.
== END 2022-10-25 17:31 | disposition home or self-care (01) | DRG 246 ==
LOC: ER 23:44 → PCU 10-22 01:03 → ICUW 10-22 01:03 → PCU 10-24 16:11
PROVIDERS: Emergency Medicine; Internal Medicine Cardiovascular Disease; ADMIT Internal Medicine Cardiovascular Disease
PROC: 027034Z Dilation of Coronary Artery, One Artery with Drug-eluting Intraluminal Device, Percutaneous Approach (ICD-10-PCS; principal; 2022-10-22)
PROC: B211YZZ Fluoroscopy of Multiple Coronary Arteries using Other Contrast (ICD-10-PCS; 2022-10-22)
PROC: B215YZZ Fluoroscopy of Left Heart using Other Contrast (ICD-10-PCS; 2022-10-22)
PROC: 4A023N7 Measurement of Cardiac Sampling and Pressure, Left Heart, Percutaneous Approach (ICD-10-PCS; 2022-10-22)
PROC: B24BZZ3 Ultrasonography of Heart with Aorta, Intravascular (ICD-10-PCS; 2022-10-22)
DX: I21.09 ST elevation (STEMI) myocardial infarction involving other coronary artery of anterior wall (principal); I50.43 Acute on chronic combined systolic (congestive) and diastolic (congestive) heart failure; I13.0 Hypertensive heart and chronic kidney disease with heart failure and stage 1 through stage 4 chronic kidney disease, or unspecified chronic kidney disease; N39.0 Urinary tract infection, site not specified; N17.9 Acute kidney failure, unspecified; I47.1 Supraventricular tachycardia; E78.5 Hyperlipidemia, unspecified; Z20.822 Contact with and (suspected) exposure to COVID-19; J44.9 Chronic obstructive pulmonary disease, unspecified; D05.11 Intraductal carcinoma in situ of right breast; E03.9 Hypothyroidism, unspecified; I51.3 Intracardiac thrombosis, not elsewhere classified; E87.6 Hypokalemia; N18.30 Chronic kidney disease, stage 3 unspecified; T78.3XXA Angioneurotic edema, initial encounter; D63.1 Anemia in chronic kidney disease; D69.6 Thrombocytopenia, unspecified; I27.20 Pulmonary hypertension, unspecified; Z86.718 Personal history of other venous thrombosis and embolism; Z90.49 Acquired absence of other specified parts of digestive tract; Z90.710 Acquired absence of both cervix and uterus; Z98.890 Other specified postprocedural states; Z88.0 Allergy status to penicillin; Z88.1 Allergy status to other antibiotic agents; Z91.011 Allergy to milk products; Z91.012 Allergy to eggs; Z91.013 Allergy to seafood; Z91.038 Other insect allergy status; Z79.01 Long term (current) use of anticoagulants; Z79.51 Long term (current) use of inhaled steroids; Z79.899 Other long term (current) drug therapy
CPT/HCPCS: 0241U; 36415; 76937; 80048; 80053; 80061; 82550; 82553; 83036; 83735; 83880; 84443; 84484; 85025; 85347; 85610; 85730; 93005; 93010; 93458; 94760; 94762; 96374; 97110; 97162; 99152; 99153; 99285; A9270; C1725; C1760; C1769; C1874; C1887; C1894; C8929; C9606; J0153; J1644; J1885; J1940; J2250; J3010; J3420; J7030; J7040; J7050; Q9957; Q9967

== ENCOUNTER 2022-11-07 10:52 | Inpatient (IN) | payer MEDICARE, OTHER ==
[~2022-11-07] VITALS: Ht 152.4 cm; Wt 82.7 kg
[~2022-11-07 10:52] MED LIST changes: +ASPI81CH PO; +ATOR80 PO; +FURO40 PO; +JANTOVEN2 MG PO; +JARDIANCE25 MG PO; +PANT40 PO; +POTA10T PO; +Prinivil10 MG PO; +SPIR25 PO; +TRELEGY ELLIPT1 EACH INH
[2022-11-07 11:49] LABS: BASOPHILS ABSOLUTE AUTO 0.08 K/mm3 (0.00-0.23); BASOPHILS PERCENT AUTO 1 % (0-2); EOSINOPHILS ABSOLUTE AUTO 0.22 K/mm3 (0.00-0.68); EOSINOPHILS PERCENT AUTO 3 % (0-6); Hematocrit 40.1 % (33.0-51.0); Hemoglobin 12.9 g/dL (11.5-16.0); IMMATURE GRAN ABSOLUTE AUTO 0.03 K/mm3 (0.00-0.10); IMMATURE GRAN PERCENT AUTO 0 % (0-1); LYMPHOCYTES ABSOLUTE AUTO 1.53 K/mm3 (0.84-5.20); LYMPHOCYTES PERCENT AUTO 22 % (21-46); MONOCYTES ABSOLUTE AUTO 0.94 K/mm3 (0.16-1.47); MONOCYTES PERCENT AUTO 13 % (4-13); Mean Corpuscular HGB 29.7 pg (26.0-34.0); Mean Corpuscular HGB Conc 32.2 g/dL (31.5-36.5); Mean Corpuscular Volume 92 fL (80-100); Mean Platelet Volume 10.1 fL (9.1-12.4); NEUTROPHILS ABSOLUTE AUTO 4.24 K/mm3 (1.96-9.15); NEUTROPHILS PERCENT AUTO 60 % (41-73); Platelet Count 267 K/mm3 (150-400); RDW Coefficient Variation 13.3 % (11.7-14.2); RDW Standard Deviation 45.8 fL (35.1-46.3); Red Blood Cell Count 4.35 M/mm3 (3.80-5.20); White Blood Cell Count 7.04 K/mm3 (4.00-11.30)
[2022-11-07 12:05] LABS: Albumin, Blood 3.1 g/dL (3.4-5.0); Albumin/Globulin Ratio 0.9 (0.8-1.8); Bilirubin, Total 0.5 mg/dL (0.1-1.0); Calcium, Blood 8.9 mg/dL (8.5-10.1); Creatinine, Blood 2.37 mg/dL (0.40-1.00); Globulin, Blood 3.3 g/dL (2.2-4.0); Potassium, Blood 5.6 mmol/L (3.5-5.5); Total Protein, Blood 6.4 g/dL (6.4-8.2)
[2022-11-07 13:16] LABS: Source, Urine Clean Catch
[2022-11-07 13:29] LABS: Appearance, Urine Clear (Clear); Bilirubin, Urine Neg (Neg); Blood, Urine Neg (Neg); Color, Urine Yellow (P-Yellow); Glucose Qualitative, Urine 2+ (Neg); Ketones, Urine Neg (Neg); Leukocyte Esterase, Urine Neg (Neg); Nitrite, Urine Neg (Neg); Protein, Urine Neg (Neg); Specific Gravity, Urine 1.015 (1.003-1.022); Urobilinogen, Urine NORM (Normal)
--- NOTE | 2022-11-07 15:30 | NUR ---
PT ADMITTED TO ROOM 364 VIA GURNEY. ABLE TO TRANSFER SELF TO BED. ANSWERING QUESTIONS APPROPRIATELY. ORIENTED TO ROOM.
[2022-11-07] MEDS ORDERED: VITAMIN D5000 UNIT PO (15:47)
[2022-11-07 16:53] LABS: Prothrombin Time Results >90.0 Sec (9.7-11.5)
[2022-11-07 16:54] LABS: International Normalized Ratio >10.00
--- NOTE | 2022-11-07 18:31 | NUR ---
SHIFT SUMMARY PT WITH ONE PERSON ASSIST TO BATHROOM TO PUSH IV POLE AND FOR SAFETY. DENIES FEELING DIZZY WITH TRANSITION FROM LAYING TO SITTING TO STANDING. DOES WALK WITH A LIMP. WILL REPORT CONDITION TO ONCOMING SHIFT.
--- NOTE | 2022-11-08 06:04 | NUR ---
Patient AOX4, denies SOB, pain or discomfort. Took all medications whole without issues. Coagulation remains an issue, dressing on L-Arm changed 3x this shift after being engoged in blood. Dressed site with 2x2 gauze, and clear tegarderm film. Patient is able to ambulate to BR using rolling walker. IV fluids infusing, will continue to monitor.
[2022-11-08 06:10] LABS: Prothrombin Time Results 73.4 Sec (9.7-11.5)
[2022-11-08 06:25] LABS: Bun/Creatinine Ratio 19.6 (12.0-20.0); Calcium, Blood 8.6 mg/dL (8.5-10.1); Creatinine, Blood 1.89 mg/dL (0.40-1.00); Potassium, Blood 4.5 mmol/L (3.5-5.5)
[2022-11-08 06:28] LABS: International Normalized Ratio 8.01
--- NOTE | 2022-11-08 18:01 | NUR ---
SHIFT SUMMARY PATIENT DENIES PAIN, NAUSEA, AND SHORTNESS OF BREATH. PATIENT IS IND IN ROOM WITH FWW. PATIENT MALIK DHALIWAL DR. NOTIFIED, NO NEW ORDERS. PATIENT HAS FLUIDS RUNNING. PATIENT DENIES SYMPTOMS WITH LOW SBP. PATIENT TAKEN FOR SPINE XRAY, AWAITING RESULTS. IV CAME OUT AT APPROX 1700, PATIENT BLEEDING A LOT. HELD PRESSURE FOR APPROX 5 MINUTES. PATIENT DENIES DIZZINESS, LIGHTHEADEDNESS, VITALS WNL. PATIENT HAD POWERGLIDE PLACED. PATIENT EATING AND DRINKING WELL. PATIENT PLEASANT AND COOPERATIVE WITH CARE.
--- NOTE | 2022-11-09 04:40 | NUR ---
SHIFT SUMMARY PATIENT HAD NO ACUTE CHANGES. AXOX 4 AND INDEPENDENT IN ROOM. DENIES PAIN, SOB, AND N/V. POWERGLIDE STONE INTACT. NS INFUSING @ 75 mL/HR. WET PROCESS MILLER HEAD ASSISTANT REPORTS NSR 64. VSS/AFEBRILE. COOPERATIVE WITH CARE. CALL LIGHT IN REACH. BED IN LOWEST POSITION. WILL CONTINUE TO MONITOR UNTIL DAY SHIFT NURSE ASSUMES CARE.
[2022-11-09 05:36] LABS: International Normalized Ratio 2.77; Prothrombin Time Results 27.2 Sec (9.7-11.5)
[2022-11-09 05:54] LABS: Albumin, Blood 2.5 g/dL (3.4-5.0); Anion Gap 6 mmol/L (6-16); Blood Urea Nitrogen 30 mg/dL (8-24); Bun/Creatinine Ratio 18.2 (12.0-20.0); CO2, Blood 23 mmol/L (21-32); Calcium, Blood 8.5 mg/dL (8.5-10.1); Chloride, Blood 116 mmol/L (98-108); Creatinine, Blood 1.65 mg/dL (0.40-1.00); Glomerular Filtration Rate 31 (60-); Glucose, Blood 101 mg/dL (70-99); Phosphorus, Blood 3.6 mg/dL (2.5-4.9); Potassium, Blood 4.5 mmol/L (3.5-5.5); Sodium, Blood 145 mmol/L (136-145)
[2022-11-09] MEDS ORDERED: WARF2.5 PO (11:42)
[2022-11-09] MEDS ORDERED: TRAM50 PO (11:43)
[2022-11-09] MEDS ORDERED: AIRDUO RESPICL1 EAC4 INH (11:43)
--- NOTE | 2022-11-09 15:12 | NUR ---
DISCHARGE PATIENT TRANSPORTED VIA WHEELCHAIR TO PRIVATE VEHICLE. DISCHARGE INSTRUCTIONS EXPLAINED TO PATIENT. PATIENT STATED UNDERSTANDING. PACKET SENT WITH PATIENT. PER PATIENT REQUEST, DISCHARGE INFORMATION ALSO GIVEN TO PATIENT DAUGHTER. DAUGHTER STATED UNDERSTANDING. BELONGINGS SENT WITH PATIENT. POWERGLIDE REMOVED WITHOUT DIFFICULTY. MEDICATIONS FAXED TO PREFERRED PHARMACY. HARD SCRIPT SENT WITH PATIENT. PATIENT TO SCHEDULE FOLLOW UP APPOINTMENT WITH PCP.
== END 2022-11-09 14:05 | disposition home or self-care (01) | DRG 682 ==
LOC: ER 10:52 → MEDS 10:53
PROVIDERS: Internal Medicine; Nurse Practitioner Acute Care; Student in an Organized Health Care Education/Training Program; ADMIT Internal Medicine
DX: N17.9 Acute kidney failure, unspecified (principal); I21.3 ST elevation (STEMI) myocardial infarction of unspecified site; I25.10 Atherosclerotic heart disease of native coronary artery without angina pectoris; M54.9 Dorsalgia, unspecified; J44.9 Chronic obstructive pulmonary disease, unspecified; K21.9 Gastro-esophageal reflux disease without esophagitis; E87.5 Hyperkalemia; I95.9 Hypotension, unspecified; M51.36 Other intervertebral disc degeneration, lumbar region; N18.30 Chronic kidney disease, stage 3 unspecified; I48.0 Paroxysmal atrial fibrillation; E03.9 Hypothyroidism, unspecified; E86.1 Hypovolemia; I12.9 Hypertensive chronic kidney disease with stage 1 through stage 4 chronic kidney disease, or unspecified chronic kidney disease; E86.0 Dehydration; R77.8 Other specified abnormalities of plasma proteins; M19.90 Unspecified osteoarthritis, unspecified site; K44.9 Diaphragmatic hernia without obstruction or gangrene; Z96.653 Presence of artificial knee joint, bilateral; Z88.1 Allergy status to other antibiotic agents; Z88.8 Allergy status to other drugs, medicaments and biological substances; Z91.012 Allergy to eggs; Z91.018 Allergy to other foods; Z79.01 Long term (current) use of anticoagulants; Z91.038 Other insect allergy status; Z88.0 Allergy status to penicillin; Z88.4 Allergy status to anesthetic agent; Z95.5 Presence of coronary angioplasty implant and graft; Z91.048 Other nonmedicinal substance allergy status; Z79.51 Long term (current) use of inhaled steroids; Z79.52 Long term (current) use of systemic steroids; Z79.811 Long term (current) use of aromatase inhibitors; Z79.02 Long term (current) use of antithrombotics/antiplatelets; Z79.82 Long term (current) use of aspirin; Z86.718 Personal history of other venous thrombosis and embolism; Z90.49 Acquired absence of other specified parts of digestive tract; Z79.899 Other long term (current) drug therapy; Z90.710 Acquired absence of both cervix and uterus; Z98.890 Other specified postprocedural states; Z87.81 Personal history of (healed) traumatic fracture
CPT/HCPCS: 36415; 71046; 72070; 72100; 80048; 80053; 80069; 81003; 83605; 84132; 84484; 85025; 85610; 93005; 93010; 94640; 94664; 94760; 96360; 96361; 99285-25; A9270; C1751; C9113; G0378; J7030; J7040

== ENCOUNTER → 2023-05-15 | Outpatient (CLI) | payer MEDICARE, OTHER ==
[~2023-05-15] MED LIST changes: +AIRDUO RESPICL1 EAC4 INH; +VITAMIN D5000 UNIT PO; +WARF2.5 PO
== END ==
LOC: LAB SHORT 07:48 → PLD 07:48
DX: L82.0 Inflamed seborrheic keratosis (principal)
CPT/HCPCS: 88305

== ENCOUNTER → 2023-09-23 | Outpatient (CLI) | payer MEDICARE, OTHER ==
[2023-09-23 18:10] LABS: Protein, Urine Quantitative 10.2 mg/dL (0.0-11.9)
[2023-09-23 18:38] LABS: Microalbumin, Urine Quant. <5.000 mg/L (0.000-20.000)
== END ==
LOC: LAB SHORT 14:27 → LAB 14:27 → LAB FUT 09-18 14:00
PROVIDERS: Internal Medicine Nephrology
DX: N18.30 Chronic kidney disease, stage 3 unspecified (principal); D63.1 Anemia in chronic kidney disease; N25.81 Secondary hyperparathyroidism of renal origin; E55.9 Vitamin D deficiency, unspecified; E78.01 Familial hypercholesterolemia; R76.9 Abnormal immunological finding in serum, unspecified; R94.5 Abnormal results of liver function studies; R94.6 Abnormal results of thyroid function studies
CPT/HCPCS: 81050; 82043; 82570; 84156

== ENCOUNTER → 2023-10-21 | Outpatient (CLI) | payer MEDICARE, OTHER ==
[2023-10-21 18:56] LABS: Protein, Urine Quantitative 9.1 mg/dL (0.0-11.9)
[2023-10-21 19:12] LABS: Microalbumin, Urine Quant. <5.000 mg/L (0.000-20.000)
== END | disposition home or self-care (01) ==
LOC: LAB 04:22 → LAB SHORT 04:22 → LAB FUT 10-14 14:35
PROVIDERS: Internal Medicine Nephrology
DX: N18.30 Chronic kidney disease, stage 3 unspecified (principal); D63.1 Anemia in chronic kidney disease; N25.81 Secondary hyperparathyroidism of renal origin; E55.9 Vitamin D deficiency, unspecified; E78.00 Pure hypercholesterolemia, unspecified; R76.9 Abnormal immunological finding in serum, unspecified; R94.5 Abnormal results of liver function studies; R94.6 Abnormal results of thyroid function studies
CPT/HCPCS: 81050; 82043; 82570; 84156

== ENCOUNTER → 2023-11-13 | Outpatient (CLI) | payer MEDICARE, OTHER ==
[2023-11-13 17:29] LABS: Protein, Urine Quantitative 7.6 mg/dL (0.0-11.9)
[2023-11-13 17:31] LABS: Microalbumin, Urine Quant. <5.000 mg/L (0.000-20.000)
== END | disposition home or self-care (01) ==
LOC: LAB SHORT 06:30 → LAB 06:30 → LAB FUT 11-06 14:50
PROVIDERS: Internal Medicine Nephrology
DX: N18.30 Chronic kidney disease, stage 3 unspecified (principal); D63.1 Anemia in chronic kidney disease; N25.81 Secondary hyperparathyroidism of renal origin; E55.9 Vitamin D deficiency, unspecified; E78.00 Pure hypercholesterolemia, unspecified; R76.9 Abnormal immunological finding in serum, unspecified; R94.5 Abnormal results of liver function studies; R94.6 Abnormal results of thyroid function studies
CPT/HCPCS: 81050; 82043; 82570; 84156

== ENCOUNTER 2024-04-13 12:25 | Emergency (ER) | payer MEDICARE, OTHER ==
[~2024-04-13] VITALS: Ht 152.4 cm; Wt 84.4 kg
[2024-04-13 15:04] VITALS: BP 131/95
== END 2024-04-13 15:42 | disposition home or self-care (01) ==
LOC: ER 12:25
DX: S00.83XA Contusion of other part of head, initial encounter (principal); S00.03XA Contusion of scalp, initial encounter; S00.12XA Contusion of left eyelid and periocular area, initial encounter; J44.9 Chronic obstructive pulmonary disease, unspecified; K44.9 Diaphragmatic hernia without obstruction or gangrene; W18.30XA Fall on same level, unspecified, initial encounter; Z79.890 Hormone replacement therapy; Z79.899 Other long term (current) drug therapy; Z79.82 Long term (current) use of aspirin; Z79.01 Long term (current) use of anticoagulants; Z96.659 Presence of unspecified artificial knee joint
CPT/HCPCS: 70450; 70486; 71046; 73090; 73610; 99284-25

== ENCOUNTER 2025-05-17 22:13 | Emergency (ER) | payer MEDICARE, OTHER ==
[~2025-05-17] VITALS: Ht 157.5 cm; Wt 63.5 kg
[2025-05-18] MEDS ORDERED: MYRBETRIQ50 MG PO (00:26)
[2025-05-18] MEDS ORDERED: OXYC5 PO (00:29)
[2025-05-18] MEDS ORDERED: CYMBALTA30 M2 PO (00:30)
[2025-05-18] MEDS ORDERED: CALCITRIOL0.25 MC4 PO (00:31)
[2025-05-18] MEDS ORDERED: EPINEPHRIN0.3 MG/0.1 IM (00:32)
[2025-05-18] MEDS ORDERED: POTA8 PO (00:32)
[2025-05-18] MEDS ORDERED: Ventolin5 MG/1 ML INH (00:33)
[2025-05-18 00:35] LABS: BASOPHILS ABSOLUTE AUTO 0.03 K/mm3 (0.00-0.23); BASOPHILS PERCENT AUTO 1 % (0-2); EOSINOPHILS ABSOLUTE AUTO 0.12 K/mm3 (0.00-0.68); EOSINOPHILS PERCENT AUTO 3 % (0-6); Hematocrit 43.6 % (33.0-51.0); Hemoglobin 13.9 g/dL (11.5-16.0); IMMATURE GRAN ABSOLUTE AUTO 0.01 K/mm3 (0.00-0.10); IMMATURE GRAN PERCENT AUTO 0 % (0-1); LYMPHOCYTES ABSOLUTE AUTO 1.16 K/mm3 (0.84-5.20); LYMPHOCYTES PERCENT AUTO 25 % (21-46); MONOCYTES ABSOLUTE AUTO 0.62 K/mm3 (0.16-1.47); MONOCYTES PERCENT AUTO 13 % (4-13); Mean Corpuscular HGB Conc 31.9 g/dL (31.5-36.5); Mean Corpuscular Volume 94 fL (80-100); NEUTROPHILS ABSOLUTE AUTO 2.70 K/mm3 (1.96-9.15); NEUTROPHILS PERCENT AUTO 58 % (41-73); NRBC ABSOLUTE 0.00 K/mm3 (0.00-0.02); NRBC Auto 0.0 /100 WBC (0.0-0.2); Platelet Count 215 K/mm3 (150-400); RDW Coefficient Variation 12.9 % (11.7-14.2); RDW Standard Deviation 44.4 fL (35.1-46.3)
[2025-05-18 00:54] LABS: Alanine Aminotransfer (ALT/SGP 13.0 U/L (12-78); Albumin, Blood 3.5 g/dL (3.4-5.0); Albumin/Globulin Ratio 1.0 (0.8-1.8); Anion Gap 8.0 mmol/L (3-11); Aspartate Aminotrans (AST/SGOT 17.0 U/L (12-37); Bilirubin, Total 0.6 mg/dL (0.1-1.0); Blood Urea Nitrogen 21.0 mg/dL (8-24); CO2, Blood 27.0 mmol/L (21-32); Calcium, Blood 9.4 mg/dL (8.5-10.1); Chloride, Blood 104.0 mmol/L (98-108); Creatinine, Blood 1.45 mg/dL (0.40-1.00); Globulin, Blood 3.6 g/dL (2.2-4.0); Glucose, Blood 106.0 mg/dL (70-99); Potassium, Blood 3.8 mmol/L (3.5-5.5); Sodium, Blood 135.0 mmol/L (136-145); Total Protein, Blood 7.1 g/dL (6.4-8.2)
[2025-05-18 01:15] LABS: Source, Urine Clean Catch
[2025-05-18 01:33] LABS: Bilirubin, Urine Neg (Neg); Glucose Qualitative, Urine 4+ (Neg); Ketones, Urine 1+ (Neg); Leukocyte Esterase, Urine Neg (Neg); Protein, Urine 1+ (Neg); Specific Gravity, Urine 1.020 (1.003-1.022); Urobilinogen, Urine NORM (Normal)
[2025-05-18 01:35] LABS: Color, Urine Yellow (P-Yellow)
[2025-05-18] MEDS ORDERED: Protonix40 MG PO (03:26)
[2025-05-18] MEDS ORDERED: LIDO700A20 TOP (03:26)
[2025-05-18] MEDS ORDERED: Lidocaine 4% 1 Patch TOP ONE (03:45)
[2025-05-18 04:00] VITALS: BP 112/65
== END 2025-05-18 04:00 | disposition home or self-care (01) ==
LOC: ER 22:13
PROVIDERS: Student in an Organized Health Care Education/Training Program
DX: R10.9 Unspecified abdominal pain (principal); K44.9 Diaphragmatic hernia without obstruction or gangrene; J44.89 Other specified chronic obstructive pulmonary disease; I10 Essential (primary) hypertension; E03.9 Hypothyroidism, unspecified; I25.2 Old myocardial infarction; Z99.81 Dependence on supplemental oxygen; Z88.6 Allergy status to analgesic agent; Z88.4 Allergy status to anesthetic agent; Z88.1 Allergy status to other antibiotic agents; Z91.030 Bee allergy status; Z91.012 Allergy to eggs; Z91.011 Allergy to milk products; Z88.0 Allergy status to penicillin; Z88.8 Allergy status to other drugs, medicaments and biological substances; Z91.018 Allergy to other foods; Z91.048 Other nonmedicinal substance allergy status; Z79.01 Long term (current) use of anticoagulants; Z79.890 Hormone replacement therapy; Z79.899 Other long term (current) drug therapy
CPT/HCPCS: 36415; 71260; 74177; 80053; 83605; 84484; 85025; 93005; 93010; 99284; A9270; Q9967

== ENCOUNTER 2025-08-04 10:51 | Inpatient (IN) | payer MEDICARE, OTHER ==
[~2025-08-04] VITALS: Ht 152.4 cm; Wt 62.5 kg
[~2025-08-04 10:51] MED LIST changes: +CALCITRIOL0.25 MC4 PO; +DULO30 PO; +EPINEPHRIN0.3 MG/0.1 IM; +MYRBETRIQ50 MG PO; +POTA8 PO; +Protonix40 MG PO; -Ventolin/Prove6.7 GM INH; +Ventolin5 MG/1 ML INH
[2025-08-04 11:35] LABS: BASOPHILS ABSOLUTE AUTO 0.03 K/mm3 (0.00-0.23); BASOPHILS PERCENT AUTO 1 % (0-2); EOSINOPHILS ABSOLUTE AUTO 0.07 K/mm3 (0.00-0.68); EOSINOPHILS PERCENT AUTO 2 % (0-6); Hematocrit 40.0 % (33.0-51.0); Hemoglobin 13.2 g/dL (11.5-16.0); IMMATURE GRAN ABSOLUTE AUTO 0.01 K/mm3 (0.00-0.10); IMMATURE GRAN PERCENT AUTO 0 % (0-1); LYMPHOCYTES ABSOLUTE AUTO 1.03 K/mm3 (0.84-5.20); LYMPHOCYTES PERCENT AUTO 24 % (21-46); MONOCYTES ABSOLUTE AUTO 0.49 K/mm3 (0.16-1.47); MONOCYTES PERCENT AUTO 11 % (4-13); Mean Corpuscular HGB Conc 33.0 g/dL (31.5-36.5); Mean Corpuscular Volume 92 fL (80-100); NEUTROPHILS ABSOLUTE AUTO 2.70 K/mm3 (1.96-9.15); NEUTROPHILS PERCENT AUTO 62 % (41-73); NRBC ABSOLUTE 0.00 K/mm3 (0.00-0.02); NRBC Auto 0.0 /100 WBC (0.0-0.2); Platelet Count 155 K/mm3 (150-400); RDW Coefficient Variation 13.4 % (11.7-14.2); RDW Standard Deviation 45.8 fL (35.1-46.3)
[2025-08-04 12:12] LABS: Alanine Aminotransfer (ALT/SGP 22.0 U/L (12-78); Albumin, Blood 3.7 g/dL (3.4-5.0); Albumin/Globulin Ratio 1.3 (0.8-1.8); Anion Gap 10.0 mmol/L (3-11); Aspartate Aminotrans (AST/SGOT 22.0 U/L (12-37); Bilirubin, Total 0.8 mg/dL (0.1-1.0); Blood Urea Nitrogen 28.0 mg/dL (8-24); CO2, Blood 24.0 mmol/L (21-32); Calcium, Blood 9.1 mg/dL (8.5-10.1); Chloride, Blood 109.0 mmol/L (98-108); Creatinine, Blood 1.61 mg/dL (0.40-1.00); Globulin, Blood 2.9 g/dL (2.2-4.0); Glucose, Blood 92.0 mg/dL (70-99); Potassium, Blood 3.9 mmol/L (3.5-5.5); Sodium, Blood 139.0 mmol/L (136-145); Total Protein, Blood 6.6 g/dL (6.4-8.2)
[2025-08-04] MEDS ORDERED: DiphenhydrAMINE HCl 50 MG/ML 1ML Vial IV ONE (17:27)
[2025-08-04] MEDS ORDERED: Magnesium Hydroxide Conc 10 ML UDC PO PRN (17:30)
[2025-08-04] MEDS ORDERED: FLU VACC TS2025-26(6MOS UP)/PF 45 MCG/0.5 ML SYRINGE IM ONE (17:30)
[2025-08-04] MEDS ORDERED: Formoterol/Mometasone MDI 5/100 mcg 13 GM INH SCH (17:35)
[2025-08-04] MEDS ORDERED: Ipratropium Bromide INH 0.02% 0.5 mg/2.5ML Vial INH SCH (17:35)
[2025-08-04 18:12] LABS: CORONAVIRUS COVID-19 AG Negative (NEGATIVE)
[2025-08-04 18:14] LABS: Thyroid Stimulating Hormone 0.029 uIU/mL (0.360-4.800)
[2025-08-04] MEDS ORDERED: METOPROLOL SUCC25 MG PO (19:37)
[2025-08-04 19:49] VITALS: BP 103/75
[2025-08-05] VITALS (8 sets, daily range): BP systolic 82–113; BP diastolic 66–89
--- NOTE | 2025-08-05 00:23 | NUR ---
NOTIFIED MD: PT HAD A BP 82/71 HR 42. INFORMED MD OF VITALS WELL THE BEDTIME METOPROLOL PT RECIEVED TONIGHT. MD ORDERED LR AND MIDODRINE.
[2025-08-05] MEDS ORDERED: Ipratropium Bromide INH 0.02% 0.5 mg/2.5ML Vial INH SCH (02:00)
--- NOTE | 2025-08-05 03:14 | NUR ---
SHIFT SUMMARY: AOX4. SBA WITH CANE TO TOILET. PT HAS CARDIAC TELEMETRY, AFIB 90S. WHILE AMBULATING PT HR INCREASED TO 150s THIS SHIFT. DURING MIDNIGHT VITALS, SBP 86 MD WAS NOTIFIED. 250CC LR BOLUS AND MIDODRINE GIVEN PER eMAR. PT IS NPO PENDING STRESS TEST. CALL LIGHT IS WITHIN REACH. BED IS LOW AND LOCKED.
[2025-08-05 04:48] LABS: BASOPHILS ABSOLUTE AUTO 0.03 K/mm3 (0.00-0.23); BASOPHILS PERCENT AUTO 1 % (0-2); EOSINOPHILS ABSOLUTE AUTO 0.08 K/mm3 (0.00-0.68); EOSINOPHILS PERCENT AUTO 3 % (0-6); Hematocrit 38.0 % (33.0-51.0); Hemoglobin 12.3 g/dL (11.5-16.0); IMMATURE GRAN ABSOLUTE AUTO 0.01 K/mm3 (0.00-0.10); IMMATURE GRAN PERCENT AUTO 0 % (0-1); LYMPHOCYTES ABSOLUTE AUTO 0.90 K/mm3 (0.84-5.20); LYMPHOCYTES PERCENT AUTO 30 % (21-46); MONOCYTES ABSOLUTE AUTO 0.42 K/mm3 (0.16-1.47); MONOCYTES PERCENT AUTO 14 % (4-13); Mean Corpuscular HGB Conc 32.4 g/dL (31.5-36.5); Mean Corpuscular Volume 94 fL (80-100); NEUTROPHILS ABSOLUTE AUTO 1.52 K/mm3 (1.96-9.15); NEUTROPHILS PERCENT AUTO 51 % (41-73); NRBC ABSOLUTE 0.00 K/mm3 (0.00-0.02); NRBC Auto 0.0 /100 WBC (0.0-0.2); Platelet Count 148 K/mm3 (150-400); RDW Coefficient Variation 13.5 % (11.7-14.2); RDW Standard Deviation 46.7 fL (35.1-46.3)
[2025-08-05 07:04] LABS: Alanine Aminotransfer (ALT/SGP 18.0 U/L (12-78); Albumin, Blood 3.1 g/dL (3.4-5.0); Albumin/Globulin Ratio 1.2 (0.8-1.8); Anion Gap 8.0 mmol/L (3-11); Aspartate Aminotrans (AST/SGOT 18.0 U/L (12-37); Bilirubin, Total 0.8 mg/dL (0.1-1.0); Blood Urea Nitrogen 24.0 mg/dL (8-24); CO2, Blood 25.0 mmol/L (21-32); Calcium, Blood 9.1 mg/dL (8.5-10.1); Chloride, Blood 111.0 mmol/L (98-108); Creatinine, Blood 1.57 mg/dL (0.40-1.00); Globulin, Blood 2.5 g/dL (2.2-4.0); Glucose, Blood 84.0 mg/dL (70-99); Potassium, Blood 4.2 mmol/L (3.5-5.5); Sodium, Blood 140.0 mmol/L (136-145); Total Protein, Blood 5.6 g/dL (6.4-8.2)
[2025-08-05] MEDS ORDERED: Lidocaine 4% 1 Patch TOP SCH (09:00)
--- NOTE | 2025-08-05 11:38 | NUR ---
Pt. is awake in bed and welcomes my visit. This ornamental iron worker helper had previously met the Pt. in the ED waiting room. Pt. is pleasant. Facilitated a lengthy life review and considered matters of fartun and belief. Listened and engaged with empathy and pastoral care. A measure of rapport is achieved. Pt. displayed evidence of trust. Prayed with the Pt. Pt. verbalized gratitude for the spiritual care visit and welcomed this ornamental iron worker helper to return.
--- NOTE | 2025-08-05 18:26 | NUR ---
PATIENT ALERT AND ORIENTED, COOPERATIVE WITH CARE. INDEPENDENT TO ROOM AND ABLE TO EXPRESS NEEDS. PATIENT RESTING COMFORTABLY IN BED POST DINNER AT THIS TIME. CALL LIGHT WITHIN REACH.
[2025-08-06] VITALS (7 sets, daily range): BP systolic 93–169; BP diastolic 75–121
--- NOTE | 2025-08-06 05:18 | NUR ---
PATIENT IS ALERT AND ORIENTED X 4, ABLE TO MAKE NEEDS KNOWN. PATIENT IS ON TELE RUNNING AFIB IN THE 100'S. PATIENT HEART RATE INCREASES TO 150-170'S WITH ACTIVITY. PATIENT IS UP INDEPENDENTLY TO THE BATHROOM. NO COMPLAINTS OF CHEST PAIN OR SOB. PATIENT ON ROOM AIR SATING >93%. BED IN LOW POSITION WITH WHEELS LOCKED. CALL LIGHT WITHIN REACH
--- NOTE | 2025-08-06 06:31 | NUR ---
DR. HAIRSTON WAS NOTIFIED OF PATIENTS HEART RATE GOING UP TO THE 190'S WITH ACTIVITY. VITAL SIGNS ARE STABLE AND PATIENT WAS ASYMPTOMATIC. PATIENT RETURNED TO BED WHERE HEART RATE WENT BACK DOWN TO [address] HAIRSTON SAID THE 0900 METOPROLOL CAN BE GIVEN EARLY IF PATIENT HR IS SUSTAINING >120'S. DR. HAIRSTON SAID TO CONTINUE TO MONITOR. PATIENT IS RESTING IN BED-DENIES CHEST PAIN OR SOB. CALL LIGHT WITHIN REACH.
[2025-08-06 07:16] LABS: BASOPHILS ABSOLUTE AUTO 0.03 K/mm3 (0.00-0.23); BASOPHILS PERCENT AUTO 1 % (0-2); EOSINOPHILS ABSOLUTE AUTO 0.07 K/mm3 (0.00-0.68); EOSINOPHILS PERCENT AUTO 2 % (0-6); Hematocrit 39.2 % (33.0-51.0); Hemoglobin 13.0 g/dL (11.5-16.0); IMMATURE GRAN ABSOLUTE AUTO 0.01 K/mm3 (0.00-0.10); IMMATURE GRAN PERCENT AUTO 0 % (0-1); LYMPHOCYTES ABSOLUTE AUTO 0.47 K/mm3 (0.84-5.20); LYMPHOCYTES PERCENT AUTO 14 % (21-46); MONOCYTES ABSOLUTE AUTO 0.45 K/mm3 (0.16-1.47); MONOCYTES PERCENT AUTO 14 % (4-13); Mean Corpuscular HGB Conc 33.2 g/dL (31.5-36.5); Mean Corpuscular Volume 92 fL (80-100); NEUTROPHILS ABSOLUTE AUTO 2.30 K/mm3 (1.96-9.15); NEUTROPHILS PERCENT AUTO 69 % (41-73); NRBC ABSOLUTE 0.00 K/mm3 (0.00-0.02); NRBC Auto 0.0 /100 WBC (0.0-0.2); Platelet Count 127 K/mm3 (150-400); RDW Coefficient Variation 13.3 % (11.7-14.2); RDW Standard Deviation 45.1 fL (35.1-46.3)
[2025-08-06 07:35] LABS: Alanine Aminotransfer (ALT/SGP 20.0 U/L (12-78); Albumin, Blood 3.2 g/dL (3.4-5.0); Albumin/Globulin Ratio 1.3 (0.8-1.8); Anion Gap 9.0 mmol/L (3-11); Aspartate Aminotrans (AST/SGOT 19.0 U/L (12-37); Bilirubin, Total 1.1 mg/dL (0.1-1.0); Blood Urea Nitrogen 22.0 mg/dL (8-24); CO2, Blood 24.0 mmol/L (21-32); Calcium, Blood 9.0 mg/dL (8.5-10.1); Chloride, Blood 110.0 mmol/L (98-108); Creatinine, Blood 1.47 mg/dL (0.40-1.00); Globulin, Blood 2.4 g/dL (2.2-4.0); Glucose, Blood 83.0 mg/dL (70-99); Potassium, Blood 4.1 mmol/L (3.5-5.5); Sodium, Blood 139.0 mmol/L (136-145); Total Protein, Blood 5.6 g/dL (6.4-8.2)
[2025-08-06] MEDS ORDERED: Potassium Chloride 10 Meq Tablet SA PO SCH (09:00)
[2025-08-06] MEDS ORDERED: Aminophylline 250MG / 10ML 10 ML Vial ONE (10:20)
[2025-08-06] MEDS ORDERED: DiphenhydrAMINE HCl 50 MG/ML 1ML Vial IV ONE (15:00)
--- NOTE | 2025-08-06 15:13 | NUR ---
PALLIATIVE CARE NOTE: RESPONDED TO RAPID RESPONSE. PT IS AWAKE AND ABLE TO PARTICIPATE IN DECISIONS. NO FAMILY PRESENT. CALLED CONTACTS. LEFT DAUGHTER SANDEEP GENERIC MESSAGE REQUESTING RETURN CALL. CALLED KAREN IRBY AND WAS ABLE TO TALK TO HIM. UPDATED HIM ON HIS GRANDMA'S CONDITION. HE WAS THANKFUL FOR UPDATE.
[2025-08-07] VITALS (11 sets, daily range): BP systolic 87–113; BP diastolic 64–88
--- NOTE | 2025-08-07 04:49 | NUR ---
NO ACUTE CHANGES DURING SHIFT. PT ALERT AND ORIENTED X4, ABLE TO MAKE NEEDS KNOWN. PATIENT UP INDEPENDENTLY IN THE ROOM. ON TELE- RUNNING AFIB 100'S. PATIENT HEART RATE INCREASE WITH ACTIVITY. RN EDUCATED THE PATIENT ABOUT THE INCREASE IN HEART RATE AN. PATIENT STATES SHE IS FEELING WELL AND WANTS TO WALK AROUND.BED IN LOW POSITION WITH WHEELS LOCKED. CALLL LIGHT WITHN REACH
[2025-08-07 06:10] LABS: BASOPHILS ABSOLUTE AUTO 0.01 K/mm3 (0.00-0.23); BASOPHILS PERCENT AUTO 0 % (0-2); EOSINOPHILS ABSOLUTE AUTO 0.00 K/mm3 (0.00-0.68); EOSINOPHILS PERCENT AUTO 0 % (0-6); Hematocrit 38.0 % (33.0-51.0); Hemoglobin 12.5 g/dL (11.5-16.0); IMMATURE GRAN ABSOLUTE AUTO 0.01 K/mm3 (0.00-0.10); IMMATURE GRAN PERCENT AUTO 0 % (0-1); LYMPHOCYTES ABSOLUTE AUTO 0.27 K/mm3 (0.84-5.20); LYMPHOCYTES PERCENT AUTO 10 % (21-46); MONOCYTES ABSOLUTE AUTO 0.19 K/mm3 (0.16-1.47); MONOCYTES PERCENT AUTO 7 % (4-13); Mean Corpuscular HGB Conc 32.9 g/dL (31.5-36.5); Mean Corpuscular Volume 91 fL (80-100); NEUTROPHILS ABSOLUTE AUTO 2.37 K/mm3 (1.96-9.15); NEUTROPHILS PERCENT AUTO 83 % (41-73); NRBC ABSOLUTE 0.00 K/mm3 (0.00-0.02); NRBC Auto 0.0 /100 WBC (0.0-0.2); Platelet Count 139 K/mm3 (150-400); RDW Coefficient Variation 13.3 % (11.7-14.2); RDW Standard Deviation 45.4 fL (35.1-46.3)
[2025-08-07 06:39] LABS: Alanine Aminotransfer (ALT/SGP 19.0 U/L (12-78); Albumin, Blood 3.2 g/dL (3.4-5.0); Albumin/Globulin Ratio 1.3 (0.8-1.8); Anion Gap 10.0 mmol/L (3-11); Aspartate Aminotrans (AST/SGOT 16.0 U/L (12-37); Bilirubin, Total 0.7 mg/dL (0.1-1.0); Blood Urea Nitrogen 22.0 mg/dL (8-24); CO2, Blood 25.0 mmol/L (21-32); Calcium, Blood 8.7 mg/dL (8.5-10.1); Chloride, Blood 108.0 mmol/L (98-108); Creatinine, Blood 1.6 mg/dL (0.40-1.00); Globulin, Blood 2.4 g/dL (2.2-4.0); Glucose, Blood 181.0 mg/dL (70-99); Magnesium, Blood 1.9 mg/dL (1.6-2.4); Phosphorus, Blood 3.6 mg/dL (2.5-4.9); Potassium, Blood 4.2 mmol/L (3.5-5.5); Sodium, Blood 139.0 mmol/L (136-145); Total Protein, Blood 5.6 g/dL (6.4-8.2)
[2025-08-07] MEDS ORDERED: Amiodarone HCl 150 MG in NS 100 ML IV ONE (15:45)
--- NOTE | 2025-08-07 17:15 | NUR ---
SHIFT SUMMARY/TRANSFER NOTE PT TRANSFERED TO [facility]. PT IS A/OX4, VERY TALKATIVE. INDEPENDENT IN THE ROOM. ON TELE RUNNING AFIB IN THE 90-120'S AT REST WITH OCCASIONAL SHORT RUNS IN THE 150-160'S WITH EXERTION. ON RA, SATS >92%. BP'S REMAIN SOFT, PT REFUSING MIDODRINE THROUGHOUT THIS SHIFT. PT IS COOPERATIVE WITH CARE AND CALLS APPROPRIATELY USING THE CALL LIGHT.
--- NOTE | 2025-08-07 18:14 | NUR ---
PT SUMMARY; PT TRANSFERRED FROM MEDICAL FLOOR ARRIVED VIA HOSPITAL BED. PT IS ALERT AND ORIENTED X3-4 TALKATIVE, ABLE TO MAKE NEEDS KNOWN. ABLE TO GET UP AND MOVE AROUND IN BED. VITALS HRR AFIB 110-120'S AT REST TACHS UP TO 150'S, SBP 100'S, SATS ABOVE 95% ON RA, AFEBRILE. AMIO BOLUS WAS GIVEN TO BE FOLLOWED BY PO MEDS PER DR FITZPATRICK. PT DENIES ANY CHEST PAIN/PALPITATIONS. NO OTHER ISSUES ENCOUNTERED AT THIS TIME. WILL REPORT TO ONCOMING SHIFT
[2025-08-08] VITALS (9 sets, daily range): BP systolic 95–155; BP diastolic 56–121
[2025-08-08 04:18] LABS: BASOPHILS ABSOLUTE AUTO 0.04 K/mm3 (0.00-0.23); BASOPHILS PERCENT AUTO 1 % (0-2); EOSINOPHILS ABSOLUTE AUTO 0.05 K/mm3 (0.00-0.68); EOSINOPHILS PERCENT AUTO 1 % (0-6); Hematocrit 37.9 % (33.0-51.0); Hemoglobin 12.2 g/dL (11.5-16.0); IMMATURE GRAN ABSOLUTE AUTO 0.01 K/mm3 (0.00-0.10); IMMATURE GRAN PERCENT AUTO 0 % (0-1); LYMPHOCYTES ABSOLUTE AUTO 1.15 K/mm3 (0.84-5.20); LYMPHOCYTES PERCENT AUTO 23 % (21-46); MONOCYTES ABSOLUTE AUTO 0.58 K/mm3 (0.16-1.47); MONOCYTES PERCENT AUTO 12 % (4-13); Mean Corpuscular HGB Conc 32.2 g/dL (31.5-36.5); Mean Corpuscular Volume 93 fL (80-100); NEUTROPHILS ABSOLUTE AUTO 3.23 K/mm3 (1.96-9.15); NEUTROPHILS PERCENT AUTO 64 % (41-73); NRBC ABSOLUTE 0.00 K/mm3 (0.00-0.02); NRBC Auto 0.0 /100 WBC (0.0-0.2); Platelet Count 141 K/mm3 (150-400); RDW Coefficient Variation 13.7 % (11.7-14.2); RDW Standard Deviation 46.5 fL (35.1-46.3)
[2025-08-08 04:38] LABS: Alanine Aminotransfer (ALT/SGP 22.0 U/L (12-78); Albumin, Blood 3.4 g/dL (3.4-5.0); Albumin/Globulin Ratio 1.4 (0.8-1.8); Anion Gap 9.0 mmol/L (3-11); Aspartate Aminotrans (AST/SGOT 16.0 U/L (12-37); Bilirubin, Total 0.6 mg/dL (0.1-1.0); Blood Urea Nitrogen 26.0 mg/dL (8-24); CO2, Blood 26.0 mmol/L (21-32); Calcium, Blood 8.9 mg/dL (8.5-10.1); Chloride, Blood 106.0 mmol/L (98-108); Creatinine, Blood 2.18 mg/dL (0.40-1.00); Globulin, Blood 2.4 g/dL (2.2-4.0); Glucose, Blood 106.0 mg/dL (70-99); Potassium, Blood 3.9 mmol/L (3.5-5.5); Sodium, Blood 137.0 mmol/L (136-145); Total Protein, Blood 5.8 g/dL (6.4-8.2)
--- NOTE | 2025-08-08 06:46 | NUR ---
SHIFT SUMMARY: PT A&OX4 ANXIOUS AT START OF SHIFT BUT CALM AND COOPERATIVE T/O THE NIGHT. AFIB 80-110S. SOFT BPS AND MAP >65. MAINTAINED >92% ON RA. PT INDEPENDENT IN ROOM AND CALLS APPROPRIATELY. PO AMIO STARTED TODAY. NO OTHER EVENTS TO REPORTS. BED IS LOW AND LOCKED. CALL LIGHT WITHIN REACH. CONTINUE WITH CURRENT PLAN OF CARE.
[2025-08-08] MEDS ORDERED: Darbepoetin (Pharmacy Consult) SC PRN (14:25)
--- NOTE | 2025-08-08 17:20 | NUR ---
SHIFT SUMMARY PATIENT IS AO x4 AND ABLE TO MAKE NEEDS KNOWN. SBP HAS BEEN LOW BUT STABLE T/O SHIFT. HR HAS BEEN AFIB IN 90-150'S WITH EXERTION, MEDICATED PER EMAR. 02 SATS HAVE BEEN >94% ON ROOM AIR. INDEPENDENT IN ROOM AND BATHROOM. STATUS HAS BEEN CHANGED BACK TO PCU PER PROVIDER. AWAITING A RIGHT HEART CATHETERIZAITON TOMORROW. NPO AT MIDNIGHT. PATIENT IS RESTING IN BED IN LOWEST POSITION, CALL LIGHT IS WITH IN REACH.
[2025-08-08] MEDS ORDERED: N-Acetylcysteine 600 MG CAP PO SCH (21:00)
[2025-08-09] VITALS (32 sets, daily range): BP systolic 85–144; BP diastolic 51–119
[2025-08-09 03:55] LABS: BASOPHILS ABSOLUTE AUTO 0.02 K/mm3 (0.00-0.23); BASOPHILS PERCENT AUTO 0 % (0-2); EOSINOPHILS ABSOLUTE AUTO 0.07 K/mm3 (0.00-0.68); EOSINOPHILS PERCENT AUTO 2 % (0-6); Hematocrit 40.2 % (33.0-51.0); Hemoglobin 12.8 g/dL (11.5-16.0); IMMATURE GRAN ABSOLUTE AUTO 0.02 K/mm3 (0.00-0.10); IMMATURE GRAN PERCENT AUTO 0 % (0-1); LYMPHOCYTES ABSOLUTE AUTO 1.03 K/mm3 (0.84-5.20); LYMPHOCYTES PERCENT AUTO 23 % (21-46); MONOCYTES ABSOLUTE AUTO 0.55 K/mm3 (0.16-1.47); MONOCYTES PERCENT AUTO 12 % (4-13); Mean Corpuscular HGB Conc 31.8 g/dL (31.5-36.5); Mean Corpuscular Volume 93 fL (80-100); NEUTROPHILS ABSOLUTE AUTO 2.85 K/mm3 (1.96-9.15); NEUTROPHILS PERCENT AUTO 63 % (41-73); NRBC ABSOLUTE 0.00 K/mm3 (0.00-0.02); NRBC Auto 0.0 /100 WBC (0.0-0.2); Platelet Count 139 K/mm3 (150-400); RDW Coefficient Variation 13.5 % (11.7-14.2); RDW Standard Deviation 46.0 fL (35.1-46.3)
[2025-08-09 04:15] LABS: Albumin, Blood 3.4 g/dL (3.4-5.0); Anion Gap 8 mmol/L (3-11); Blood Urea Nitrogen 28 mg/dL (8-24); CO2, Blood 27 mmol/L (21-32); Calcium, Blood 9.2 mg/dL (8.5-10.1); Chloride, Blood 108 mmol/L (98-108); Creatinine, Blood 2.00 mg/dL (0.40-1.00); Glucose, Blood 100 mg/dL (70-99); Magnesium, Blood 1.8 mg/dL (1.6-2.4); Phosphorus, Blood 3.3 mg/dL (2.5-4.9); Potassium, Blood 3.9 mmol/L (3.5-5.5); Sodium, Blood 139 mmol/L (136-145)
--- NOTE | 2025-08-09 04:36 | NUR ---
ASSUMED CARE OF PT AT 1900. PT AXOX4, USES CALL LIGHT APPROPRIATELY. MOOD FLUCTUATES FREQUENTLY-ANXIOUS,PLEASANT,FRUSTRATED, AND ANGRY AT TIMES. EVENING MEDS GIVEN; 30 MIN LATER PT SPIT UP SALIVA AND PARTIALLY DISSOLVED PILLS. PT REPORTS MEDS "FEEL STUCK" BUT UNAWARE UNTIL LATER. PT NPO SINCE MIDNIGHT FOR HEART CATH. PER CARDIOLOGY, ELIQUIS HELD LAST NIGHT AND THIS MORNING. PT IN AFIB, HR MOSTLY 90S-LOW 100S, INCREASES WITH EXERTION. PT HAD 6 BEAT VRUN THIS MORNING BUT REMAINED ASYMPTOMATIC.BED IN LOWEST POSITION AND CALL LIGHT WITHIN REACH.
[2025-08-09] MEDS ORDERED: Magnesium Sulf 2 GM/Water 50ML 50 ML IV ONE (07:05)
[2025-08-09] MEDS ORDERED: Amiodarone HCl 150 MG in NS 100 ML IV ONE (07:40)
[2025-08-09] MEDS ORDERED: Potassium Chl 20MEQ/Water100ML 100 ML IV ONE (09:05)
[2025-08-09] MEDS ORDERED: NS 1,000 ML IV ONE ×2 (10:21→10:59)
[2025-08-09] MEDS ORDERED: Heparin Sodium 1000 Units/ML 10ML MDV ONE (10:21)
[2025-08-09] MEDS ORDERED: NS 1,000 ML IV PRN (11:50)
[2025-08-09] MEDS ORDERED: DEXTROSE 5% IV SCH (11:55)
[2025-08-09] MEDS ORDERED: NS 500 ML IV ONE (12:00)
--- NOTE | 2025-08-09 12:26 | NUR ---
TRANSFER SUMMARY PATIENT AOX4. O2 SATS >92% ON ROOM AIR. BLOOD PRESSURE LOW BUT STABLE. PATIENT IN AFIB WITH RVR 90-140'S WITH EXERTION. PROVIDER AWARE, MEDICATED PER EMAR. NEW PIV INITIATED ON SHIFT. AMBULATES HER SELF AND ABLE TO MAKE NEEDS KNOWN. PATIENT DENIES CHEST PAIN PRESSURE, SOB WITH EXERTION, PROVIDER AWARE. PATIENT WENT FOR A RIGHT HEART CATHETERIZATION. TRANSFERED TO ICU DURING EXAM. GAVE SHIFT REPORT TO ICU NURSE. fAMILY MEMBER AT BEDSIDE IN ICU
[2025-08-09] MEDS ORDERED: DOBUtamine 250 MG/D5W 250 ML 250 ML IV SCH (13:00)
[2025-08-09 17:19] LABS: Anion Gap 8.0 mmol/L (3-11); Blood Urea Nitrogen 29.0 mg/dL (8-24); CO2, Blood 26.0 mmol/L (21-32); Calcium, Blood 9.5 mg/dL (8.5-10.1); Chloride, Blood 108.0 mmol/L (98-108); Creatinine, Blood 1.9 mg/dL (0.40-1.00); Glucose, Blood 104.0 mg/dL (70-99); Magnesium, Blood 2.5 mg/dL (1.6-2.4); Potassium, Blood 4.2 mmol/L (3.5-5.5); Sodium, Blood 138.0 mmol/L (136-145)
--- NOTE | 2025-08-09 18:45 | NUR ---
SHIFT SUMMARY PT ARRIVED TO ICU WITH PA CATHETER IN PLACE, CONFIRMED LENGTH WITH SUBWAY CONDUCTOR NURSE. HEMODYNAMIC VITALS TAKEN AND INPUT, PAPER COPY IN THE CHART. ORDERS FOR VITALS Q12HR. PT A&OX4 BUT DELUSIONAL AT TIMES, SPEAKING OF MEETINGS AND PHONE CALLS WITH PRESIDENT JACOBO. OTHERWISE PT PLEASANT AND COOPERATIVE. PT DENIES CP/ DIZZINESS AT REST, BECOMES QUITE TACHYCARDIC WHILE EATING OR SPEAKING BUT HR QUICKLY DROPS TO LOW 100'S AT REST. DOBUTAMINE INFUSING @ 5MCG/KG/MIN, SBP IN THE 90-110'S. FUROSEMIDE AT 2.5MG/HR FOR A GOAL UO OF >100ML/HR. CONTINUE ELIQUIS TONIGHT.
[2025-08-09 21:45] LABS: Alanine Aminotransfer (ALT/SGP 22.0 U/L (12-78); Albumin, Blood 3.6 g/dL (3.4-5.0); Albumin/Globulin Ratio 1.3 (0.8-1.8); Anion Gap 10.0 mmol/L (3-11); Aspartate Aminotrans (AST/SGOT 16.0 U/L (12-37); Bilirubin, Total 1.0 mg/dL (0.1-1.0); Blood Urea Nitrogen 28.0 mg/dL (8-24); CO2, Blood 25.0 mmol/L (21-32); Calcium, Blood 9.3 mg/dL (8.5-10.1); Chloride, Blood 108.0 mmol/L (98-108); Creatinine, Blood 1.94 mg/dL (0.40-1.00); Globulin, Blood 2.7 g/dL (2.2-4.0); Glucose, Blood 106.0 mg/dL (70-99); Potassium, Blood 4.1 mmol/L (3.5-5.5); Sodium, Blood 139.0 mmol/L (136-145); Total Protein, Blood 6.3 g/dL (6.4-8.2)
[2025-08-10] VITALS (80 sets, daily range): BP systolic 74–146; BP diastolic 48–130
[2025-08-10] MEDS ORDERED: DEXTROMETHORPHAN/BENZOCAINE 1 EACH LOZENGE MT PRN (02:50)
[2025-08-10 03:44] LABS: BASOPHILS ABSOLUTE AUTO 0.02 K/mm3 (0.00-0.23); BASOPHILS PERCENT AUTO 1 % (0-2); EOSINOPHILS ABSOLUTE AUTO 0.03 K/mm3 (0.00-0.68); EOSINOPHILS PERCENT AUTO 1 % (0-6); Hematocrit 38.6 % (33.0-51.0); Hemoglobin 12.8 g/dL (11.5-16.0); IMMATURE GRAN ABSOLUTE AUTO 0.01 K/mm3 (0.00-0.10); IMMATURE GRAN PERCENT AUTO 0 % (0-1); LYMPHOCYTES ABSOLUTE AUTO 0.74 K/mm3 (0.84-5.20); LYMPHOCYTES PERCENT AUTO 19 % (21-46); MONOCYTES ABSOLUTE AUTO 0.47 K/mm3 (0.16-1.47); MONOCYTES PERCENT AUTO 12 % (4-13); Mean Corpuscular HGB Conc 33.2 g/dL (31.5-36.5); Mean Corpuscular Volume 91 fL (80-100); NEUTROPHILS ABSOLUTE AUTO 2.66 K/mm3 (1.96-9.15); NEUTROPHILS PERCENT AUTO 68 % (41-73); NRBC ABSOLUTE 0.00 K/mm3 (0.00-0.02); NRBC Auto 0.0 /100 WBC (0.0-0.2); Platelet Count 126 K/mm3 (150-400); RDW Coefficient Variation 13.7 % (11.7-14.2); RDW Standard Deviation 45.6 fL (35.1-46.3)
[2025-08-10 04:01] LABS: Albumin, Blood 3.4 g/dL (3.4-5.0); Anion Gap 10 mmol/L (3-11); Blood Urea Nitrogen 27 mg/dL (8-24); CO2, Blood 27 mmol/L (21-32); Calcium, Blood 9.1 mg/dL (8.5-10.1); Chloride, Blood 105 mmol/L (98-108); Creatinine, Blood 1.91 mg/dL (0.40-1.00); Glucose, Blood 108 mg/dL (70-99); Magnesium, Blood 2.1 mg/dL (1.6-2.4); Phosphorus, Blood 3.2 mg/dL (2.5-4.9); Potassium, Blood 3.7 mmol/L (3.5-5.5); Sodium, Blood 138 mmol/L (136-145)
--- NOTE | 2025-08-10 05:33 | NUR ---
SHIFT SUMMARY: PT A/Ox4, DELUSIONAL AT TIMES, PT BELIEVES SHE IS GETTING A MEDAL OF HONOR FROM THE PRESIDENT AND THAT SHE TALKS TO HIM ON THE PHONE. PT HAS INTERMITTENT ANXIETY, REFUSES ANXIETY MEDICATION. VSS, MONITOR SHOWS AFIB, RATE 90-100s. DOBUTAMINE AT 5 MCG/KG/MIN. SPO2 DESAT TO LOW 80s W/SLEEP, PT PLACED ON 2L NC. LASIX GTT AT 2.5 MG/HR, URINE OUTPUT >100ML/HR T/O THE NIGHT. TEMP MCCONNELL IN PLACE DRAINING TO GRAVITY. WILL REPORT TO ONCOMING RN.
[2025-08-10] MEDS ORDERED: Amiodarone HCl 150 MG in NS 100 ML IV ONE (08:10)
--- NOTE | 2025-08-10 08:27 | NUR ---
ASSUMPTION OF CARE RECEIVED REPORT FROM [facility] NURSE. PT IS ALERT, FOLLOWS COMMANDS, AND ANSWERS QUESTIONS BUT HAS EPISODES OF CONFUSION. PT HAS IS ON RA, O2> 94%. HR IN 90-100S, AFIB, MAP >65. SBP IN 90S. PT DENIES SOB AND CHEST PAIN. SWAN IN RIJ, ZEROED WITH [facility] NURSE WNL. PT HAS TWO PIVS, RFA AND RAC. BED AT LOWEST LEVEL, CALL LIGHT WITHIN REACH, AND NO NEEDS EXPRESSED AT THIS TIME.
--- NOTE | 2025-08-10 11:44 | NUR ---
Spiritual Care visit. Pt. is awake in bed and welcomes my visit. Pt. remembers this workday consultant from last weeks visit on the med floor. Pt. is pleasant. Facilitated an update and was re-building rapport when Pts. daughter came to bedside. This workday consultant agreed to continue the visit later in the day.
--- NOTE | 2025-08-10 18:18 | NUR ---
SHIFT SUMMARY PT IS A&OX4, BUT HAS FLIGHTS OF IDEAS. PT BELIEVES SHE WORKS FOR THE [employer] AND THAT THERE WERE PEOPLE OUTSIDE HER ROOM LOOKING INTO HER WINDOW. PT HAS 2L NC, SPO2>92%. PT CAN TOLERATE BEING ON RA. HR IS IN 100-120S, AFIB AND MAP >65. PT HAS SOFT SBP, SBP 86-100S. PT DENIES CHEST PAIN. PT HAS SWAN PAC IN [facility], WNL. PT HAS TWO PIVS, LAC AND LFA WNL. PT HAS LASIX 2.5 GTTS AND DOBUTAMINE AT 5 GTTS. PT HAS MCCONNELL CATH IN PLACE AND DRAINING TO GRAVITY, OUTPUT OF 1700MLS. PT HAS SOME SCATTERED BRUISING AND SOME REDNESS AT HER UMBILICUS. PT REFUSED TO WORK WITH SPEECH THERAPY THIS MORNING AND REFUSED TO EAT FOOD UNLESS IT WAS A REGULAR RENAL DIET, UNDERSTOOD HER RISK FOR ASPIRATION WITH REGULAR DIET. CALL LIGHT IS WITHIN REACH AND NO NEEDS EXPRESSED AT THIS TIME.
[2025-08-10] MEDS ORDERED: Miconazole Nitrate 2% 85 GM PWD TOP SCH (21:00)
[2025-08-11] VITALS (84 sets, daily range): BP systolic 53–116; BP diastolic 29–95
[2025-08-11 05:30] LABS: BASOPHILS ABSOLUTE AUTO 0.02 K/mm3 (0.00-0.23); BASOPHILS PERCENT AUTO 0 % (0-2); EOSINOPHILS ABSOLUTE AUTO 0.10 K/mm3 (0.00-0.68); EOSINOPHILS PERCENT AUTO 2 % (0-6); Hematocrit 40.6 % (33.0-51.0); Hemoglobin 13.5 g/dL (11.5-16.0); IMMATURE GRAN ABSOLUTE AUTO 0.02 K/mm3 (0.00-0.10); IMMATURE GRAN PERCENT AUTO 0 % (0-1); LYMPHOCYTES ABSOLUTE AUTO 0.75 K/mm3 (0.84-5.20); LYMPHOCYTES PERCENT AUTO 16 % (21-46); MONOCYTES ABSOLUTE AUTO 0.67 K/mm3 (0.16-1.47); MONOCYTES PERCENT AUTO 15 % (4-13); Mean Corpuscular HGB Conc 33.3 g/dL (31.5-36.5); Mean Corpuscular Volume 90 fL (80-100); NEUTROPHILS ABSOLUTE AUTO 3.07 K/mm3 (1.96-9.15); NEUTROPHILS PERCENT AUTO 66 % (41-73); NRBC ABSOLUTE 0.00 K/mm3 (0.00-0.02); NRBC Auto 0.0 /100 WBC (0.0-0.2); Platelet Count 125 K/mm3 (150-400); RDW Coefficient Variation 13.5 % (11.7-14.2); RDW Standard Deviation 45.1 fL (35.1-46.3)
[2025-08-11 05:56] LABS: Albumin, Blood 3.3 g/dL (3.4-5.0); Anion Gap 8 mmol/L (3-11); Blood Urea Nitrogen 24 mg/dL (8-24); CO2, Blood 30 mmol/L (21-32); Calcium, Blood 8.8 mg/dL (8.5-10.1); Chloride, Blood 102 mmol/L (98-108); Creatinine, Blood 1.84 mg/dL (0.40-1.00); Glucose, Blood 114 mg/dL (70-99); Magnesium, Blood 1.8 mg/dL (1.6-2.4); Phosphorus, Blood 3.7 mg/dL (2.5-4.9); Potassium, Blood 3.4 mmol/L (3.5-5.5); Sodium, Blood 137 mmol/L (136-145)
[2025-08-11] MEDS ORDERED: Potassium Chl 20MEQ/Water100ML 100 ML IV ONE (06:35)
--- NOTE | 2025-08-11 07:38 | NUR ---
SHIFT SUMMARY POD 2 SWAN-PHIL PLACEMENT TO [facility]. A&O x4, DELUSIONS R/T PRESIDENT. FOLLOWS COMMANDS & RESPONDS TO QUESTIONS APPROPRIATELY. OS SAT >98% ON 2L O2 VIA NC WHILE ASLEEP. HR 90-110s, MAP >65. PT DENIES CHEST PAIN/PRESSURE. HEMODYNAMIC VITALS PER ORDERS, PA CATHETER WNL. DOBUTAMINE INFUSING @ 5MCG/KG/MIN. LASIX INFUSING @ 2.5MG/HR c 1900 URINE OUTPUT THIS SHIFT VIA TEMP MCCONNELL TO GRAVITY. PT ENDORSES CHRONIC PAIN TO L SHOULDER/BACK, LIDOCAINE PATCH PER EMAR. PT ABLE TO REPOSITION MINIMALLY IND IN BED, 1-2 PERSON ASSIST R/T BOOSTING. PT REPORTS CONCERN R/T NO BM x3 DAYS, PT REFUSES LAXATIVE PER EMAR. MIN PO INTAKE. CALL LIGHT IN REACH, BEDSIDE REPORT GIVEN TO DAY RN.
[2025-08-11] MEDS ORDERED: Tranexamic Acid 1000 MG/10 ML 10ML Vial (SDV) INH ONE (13:50)
[2025-08-11] MEDS ORDERED: Amiodarone HCl 150 MG in NS 100 ML IV ONE (14:15)
[2025-08-11 14:32] LABS: Hematocrit 41.9 % (33.0-51.0); Hemoglobin 13.9 g/dL (11.5-16.0)
--- NOTE | 2025-08-11 16:30 | NUR ---
Event Summary. At approximately 1340, during bedside assessment with Dr. Villatoro present. Pt had sudden episode of hemoptysis, coughing up bright red blood, about 100 mls total by the time it subsided. shellacker called to bedside, orders obtained for stat chest xray, h&h. Dr. Manzo called to bedside for evaluation as well. After coughing up approximately 100 mls of blood, coughing subsided. Several adjustments made to PA catheter length, see imaging. During entire event pt did not desaturate or require additional oxygen. Pt remained alert and oriented throughout entire event. No subsequent severe episodes of coughing noted and no hemoptysis.
--- NOTE | 2025-08-11 18:18 | NUR ---
Summary. Pt alert and oriented all shift. See event note from this afternoon. Pt remains in bed, PA cath in place, dressing replaced. Pt daughter at bedside all afternoon, aware of event and updated since. Lasix increased to 5 for urine output. No other significant changes. See chart for further details.
[2025-08-11 19:40] LABS: Hematocrit 44.3 % (33.0-51.0); Hemoglobin 14.0 g/dL (11.5-16.0)
[2025-08-11 20:04] LABS: Anion Gap 9.0 mmol/L (3-11); Blood Urea Nitrogen 27.0 mg/dL (8-24); CO2, Blood 30.0 mmol/L (21-32); Calcium, Blood 9.4 mg/dL (8.5-10.1); Chloride, Blood 101.0 mmol/L (98-108); Creatinine, Blood 2.16 mg/dL (0.40-1.00); Glucose, Blood 121.0 mg/dL (70-99); Potassium, Blood 4.4 mmol/L (3.5-5.5); Sodium, Blood 136.0 mmol/L (136-145)
[2025-08-11] MEDS ORDERED: NS 1,000 ML IV SCH (22:15)
[2025-08-12] VITALS (74 sets, daily range): BP systolic 52–145; BP diastolic 39–130
[2025-08-12 03:42] LABS: BASOPHILS ABSOLUTE AUTO 0.03 K/mm3 (0.00-0.23); BASOPHILS PERCENT AUTO 1 % (0-2); EOSINOPHILS ABSOLUTE AUTO 0.17 K/mm3 (0.00-0.68); EOSINOPHILS PERCENT AUTO 3 % (0-6); Hematocrit 42.2 % (33.0-51.0); Hemoglobin 13.5 g/dL (11.5-16.0); IMMATURE GRAN ABSOLUTE AUTO 0.02 K/mm3 (0.00-0.10); IMMATURE GRAN PERCENT AUTO 0 % (0-1); LYMPHOCYTES ABSOLUTE AUTO 0.87 K/mm3 (0.84-5.20); LYMPHOCYTES PERCENT AUTO 16 % (21-46); MONOCYTES ABSOLUTE AUTO 0.73 K/mm3 (0.16-1.47); MONOCYTES PERCENT AUTO 14 % (4-13); Mean Corpuscular HGB Conc 32.0 g/dL (31.5-36.5); Mean Corpuscular Volume 94 fL (80-100); NEUTROPHILS ABSOLUTE AUTO 3.51 K/mm3 (1.96-9.15); NEUTROPHILS PERCENT AUTO 66 % (41-73); NRBC ABSOLUTE 0.00 K/mm3 (0.00-0.02); NRBC Auto 0.0 /100 WBC (0.0-0.2); Platelet Count 116 K/mm3 (150-400); RDW Coefficient Variation 13.5 % (11.7-14.2); RDW Standard Deviation 46.5 fL (35.1-46.3)
[2025-08-12 04:05] LABS: Alanine Aminotransfer (ALT/SGP 16.0 U/L (12-78); Albumin, Blood 3.1 g/dL (3.4-5.0); Albumin/Globulin Ratio 1.1 (0.8-1.8); Anion Gap 10.0 mmol/L (3-11); Aspartate Aminotrans (AST/SGOT 13.0 U/L (12-37); Bilirubin, Total 1.1 mg/dL (0.1-1.0); Blood Urea Nitrogen 26.0 mg/dL (8-24); CO2, Blood 28.0 mmol/L (21-32); Calcium, Blood 9.0 mg/dL (8.5-10.1); Chloride, Blood 102.0 mmol/L (98-108); Creatinine, Blood 2.12 mg/dL (0.40-1.00); Globulin, Blood 2.7 g/dL (2.2-4.0); Glucose, Blood 107.0 mg/dL (70-99); Potassium, Blood 4.1 mmol/L (3.5-5.5); Sodium, Blood 136.0 mmol/L (136-145); Total Protein, Blood 5.8 g/dL (6.4-8.2)
--- NOTE | 2025-08-12 04:37 | NUR ---
IV FLUIDS NS INFUSING @ 100mL/HR FOR APPROX 6 HOURS. MD NOTIFITED OF INCORRECT DOSE & FLUIDS STOPPED.
--- NOTE | 2025-08-12 06:28 | NUR ---
SHIFT SUMMARY POD 3 SWAN-PHIL PLACEMENT TO [facility]. A&O x4, FOLLOWS COMMANDS & RESPONDS TO QUESTIONS APPROPRIATELY. SPO2 >95% ON 2L O2 VIA NC, PT INTERMITTENTLY WEARS O2 WHILE ASLEEP FOR COMFORT. PT REPORTS THROAT/"LUNG" PAIN R/T EVENTS PER PREVIOUS NOTES FROM 08/11/25. PT ENDORSES MIN RESIDUAL HEMOPTYSIS c BROWN/CLEAR DRAINAGE, OUTPUT TOTAL <15mL TOTAL. PT REPORTS FEAR OF SWALLOWING PILLS R/T "COMING BACK UP." TOLERATING LIQUID PO INTAKE. HR 100-100s, MAP >65. PT DENIES CHEST PAIN/PRESSURE. HEMODYNAMIC VITALS PER ORDERS, PA CATHETER WNL. DOPUTAMINE INFUSING @ 5MCH/KG/MIN. 841 URINE OUTPUT THIS SHIFT VIA TEMP MCCONNELL TO GRAVITY. REPORTS PASSING FLATUS, NO BM. PT ABLE TO REPOSITION MIN IND IN BED, 1-2 PERSON ASSIST R/T BOOSTING. CALL LIGHT IN REACH, WILL REPORT TO DAY RN.
--- NOTE | 2025-08-12 12:08 | NUR ---
Spiritual care Visit. Pt. is awake in bed and wlecomes my visit. Pt. displayed evidence of needing to talk with someone. Pt. verbalized that she was being asked to make personal decisions about her ongoing care, and felt lie she needed to pray about it. Faciltated life review where Pt. mostly shared about the perseverance of her eldest child. Listened with interest and empathy. Matters of fartun and belief were central to this life review. Prayed with Pt. Pt. verbalized gratitude for the spiritual care visit.
[2025-08-12] MEDS ORDERED: Amiodarone HCl 450 MG in NS 250 ML IV SCH (13:00)
--- NOTE | 2025-08-12 18:49 | NUR ---
Summary. Pt remains alert and oriented. Up to bedside commode this shift with walker and standby assistance. Pt able to ambulate several feet to recliner with help for lines/cords. PA cath remains in place. Pt up in recliner at end of shift, eating dinner. No acute events this shift. New orders for infusions per Dr. Villatoro, amiodarone infusing at 0.75 mg/hr, milronone infusing at 0.15 mcg/kg/min, Dobutamine and PO amiodarone DC'd. See chart for further details.
[2025-08-13] VITALS (57 sets, daily range): BP systolic 63–176; BP diastolic 41–121
[2025-08-13 05:11] LABS: BASOPHILS ABSOLUTE AUTO 0.04 K/mm3 (0.00-0.23); BASOPHILS PERCENT AUTO 1 % (0-2); EOSINOPHILS ABSOLUTE AUTO 0.31 K/mm3 (0.00-0.68); EOSINOPHILS PERCENT AUTO 4 % (0-6); Hematocrit 38.1 % (33.0-51.0); Hemoglobin 12.7 g/dL (11.5-16.0); IMMATURE GRAN ABSOLUTE AUTO 0.06 K/mm3 (0.00-0.10); IMMATURE GRAN PERCENT AUTO 1 % (0-1); LYMPHOCYTES ABSOLUTE AUTO 0.97 K/mm3 (0.84-5.20); LYMPHOCYTES PERCENT AUTO 14 % (21-46); MONOCYTES ABSOLUTE AUTO 0.96 K/mm3 (0.16-1.47); MONOCYTES PERCENT AUTO 14 % (4-13); Mean Corpuscular HGB Conc 33.3 g/dL (31.5-36.5); Mean Corpuscular Volume 90 fL (80-100); NEUTROPHILS ABSOLUTE AUTO 4.64 K/mm3 (1.96-9.15); NEUTROPHILS PERCENT AUTO 66 % (41-73); NRBC ABSOLUTE 0.00 K/mm3 (0.00-0.02); NRBC Auto 0.0 /100 WBC (0.0-0.2); Platelet Count 128 K/mm3 (150-400); RDW Coefficient Variation 13.2 % (11.7-14.2); RDW Standard Deviation 43.0 fL (35.1-46.3)
[2025-08-13 05:41] LABS: Magnesium, Blood 1.6 mg/dL (1.6-2.4); Thyroid Stimulating Hormone 0.170 uIU/mL (0.360-4.800)
[2025-08-13 05:42] LABS: Albumin, Blood 3.1 g/dL (3.4-5.0); Anion Gap 10 mmol/L (3-11); Blood Urea Nitrogen 35 mg/dL (8-24); CO2, Blood 27 mmol/L (21-32); Calcium, Blood 8.4 mg/dL (8.5-10.1); Chloride, Blood 102 mmol/L (98-108); Creatinine, Blood 2.26 mg/dL (0.40-1.00); Glucose, Blood 115 mg/dL (70-99); Phosphorus, Blood 3.2 mg/dL (2.5-4.9); Potassium, Blood 3.8 mmol/L (3.5-5.5); Sodium, Blood 135 mmol/L (136-145)
[2025-08-13] MEDS ORDERED: D5 IV SCH (06:00)
[2025-08-13] MEDS ORDERED: MAG SULFATE IV SCH (06:00)
[2025-08-13] MEDS ORDERED: Potassium Chloride 10 Meq Tablet SA PO ONE (06:00)
--- NOTE | 2025-08-13 07:30 | NUR ---
ASSUMPTION OF CARE: ASSUMED CARE OF PATIENT. PATIENT RESTING COMFORTABLY IN BED. PATIENT DENIES NEEDS AT THIS TIME. PATIENT STABLE ON ROOM AIR WITH SPO2 > 94%. HR IN THE 110S. SBP IN THE 80S-100S WITH MAPS HIGH 50S- 80S PER REPORT. MILRINONE GTT AT 0.3 MCG/KG/MIN. NEOSYNEPHRINE GTT INFUSING AT 40 MCG/MIN. AMIODARONE GTT INFUSING AT 0.75 MG/MIN. MCCONNELL IN PLACE AND DRAINING FREELY. PATIENT ALERT AND ORIENTED X4. PATIENT DENIES PAIN OR DISCOMFORT AT THIS TIME.
[2025-08-13 11:30] LABS: pH Blood Arterial 7.43 (7.35-7.45)
--- NOTE | 2025-08-13 13:30 | NUR ---
COUGHING UP OF DARK RED CLOTS/SPUTUM: PATIENT ATTEMPTED TO EAT SOME OF HER LUNCH. AROUND THIS TIME, SHE ALSO EXPERIENCED COUGHING UP OF DARK RED CLOTS/SPUTUM. PATIENT REPORTED THAT THEY CAME FROM HER LUNGS AND THAT SHE EXPERIENCED CHEST PRESSURE/PAIN WHEN COUGHING THEM UP. VITALS REMAINED STABLE. LUNG SOUNDS REMAINED CLEAR. NOTIFIED DR. RAMOS. NEW ORDERS TO HOLD ELIQUIS.
--- NOTE | 2025-08-13 14:23 | NUR ---
Spiritual Care Visit. Extended visit with the Pt. Pt. is pleasant and displays evidence of fartun and hope despite having a difficult diagnosis. Pt. verbalized that the doctors shared that there was nothing more they could do for the Pt. Considered matters of fartun and belief. Also considered matters of maximizing her time with family. Pt. displayed evidence of understanding and agreement. Pt. verbalized gratitude fo rthe spiritual care visit.
[2025-08-13 15:32] LABS: pH Blood Arterial 7.42 (7.35-7.45)
--- NOTE | 2025-08-13 18:49 | NUR ---
SHIFT SUMMARY: NEURO: PATIENT ALERT AND ORIENTED. PATIENT ABLE TO MAKE HER NEEDS KNOWN. AT TIMES, PATIENT INACCURATELY REPEATS BACK INFORMATION TO THIS RN ABOUT HER CARE AND IS UNRECEPTIVE TO CORRECTIONS. PATIENT UP TO THE CHAIR DURING THE MORNING AND EARLY AFTERNOON. PATIENT STEADY ON HER FEET. PATIENT CALM AND COOPERATIVE WITH MOST CARE. RESPIRATORY: PATIENT STABLE ON ROOM AIR WITH SPO2 >94%. PATIENT EXPERIENCED SOME COUGHING UP OF DARK RED CLOTS/SPUTUM. PATIENT REPORTED THAT IT CAME FROM HER LUNGS. SEE NURSE'S NOTE. CARDIAC: BY MID AFTERNOON, MILRINONE GTT ON STANDBY. ELIO-SYNEPHRINE ON 30 MCG/MIN. MAPS >60. HR IN THE 100S-120S. DR. RAMOS DISCONTINUED THE SWAN PHIL THIS AFTERNOON. PATIENT TOLERATED WELL. PRESSURE HELD PER MD ORDERS. SITE DRESSED WTIH A CHG DRESSING. GI/: PATIENT CONTINUES TO REPORT THAT SHE CANNOT EAT THE HOSPITAL FOOD. CHANGED DIET TO A MINCED AND MOIST TO ASSIST WITH SWALLOWING. PATIENT REPORTED THAT SHE WILL NOT EAT IT. PATIENT TOLERATED SMALL BITES OF FOOD DURING THE SHIFT. BOWEL CARE GIVEN TO PATIENT. PATIENT REPORTED THAT SHE IS PASSING FLATUS, BUT NO BOWEL MOVEMENT. MCCONNELL IN PLACE AND DRAINING FREELY. PSYCHSOCIAL: PATIENT VISTED BY FAMILY TODAY. PATIENT REPORTS THAT SHE UNDERSTANDS THAT WITHOUT THE MEDICATION SHE "MIGHT NOT DO WELL". FAMILY IS SUPPORTIVE OF THE PATIENT.
[2025-08-14] VITALS (20 sets, daily range): BP systolic 80–164; BP diastolic 55–134
[2025-08-14 04:11] LABS: BASOPHILS ABSOLUTE AUTO 0.02 K/mm3 (0.00-0.23); BASOPHILS PERCENT AUTO 1 % (0-2); EOSINOPHILS ABSOLUTE AUTO 0.16 K/mm3 (0.00-0.68); EOSINOPHILS PERCENT AUTO 4 % (0-6); Hematocrit 36.6 % (33.0-51.0); Hemoglobin 11.9 g/dL (11.5-16.0); IMMATURE GRAN ABSOLUTE AUTO 0.02 K/mm3 (0.00-0.10); IMMATURE GRAN PERCENT AUTO 1 % (0-1); LYMPHOCYTES ABSOLUTE AUTO 0.71 K/mm3 (0.84-5.20); LYMPHOCYTES PERCENT AUTO 17 % (21-46); MONOCYTES ABSOLUTE AUTO 0.68 K/mm3 (0.16-1.47); MONOCYTES PERCENT AUTO 16 % (4-13); Mean Corpuscular HGB Conc 32.5 g/dL (31.5-36.5); Mean Corpuscular Volume 92 fL (80-100); NEUTROPHILS ABSOLUTE AUTO 2.60 K/mm3 (1.96-9.15); NEUTROPHILS PERCENT AUTO 62 % (41-73); NRBC ABSOLUTE 0.00 K/mm3 (0.00-0.02); NRBC Auto 0.0 /100 WBC (0.0-0.2); Platelet Count 111 K/mm3 (150-400); RDW Coefficient Variation 13.2 % (11.7-14.2); RDW Standard Deviation 45.2 fL (35.1-46.3)
[2025-08-14 04:25] LABS: Albumin, Blood 2.9 g/dL (3.4-5.0); Anion Gap 10 mmol/L (3-11); Blood Urea Nitrogen 35 mg/dL (8-24); CO2, Blood 26 mmol/L (21-32); Calcium, Blood 8.4 mg/dL (8.5-10.1); Chloride, Blood 105 mmol/L (98-108); Creatinine, Blood 2.30 mg/dL (0.40-1.00); Glucose, Blood 99 mg/dL (70-99); Magnesium, Blood 1.8 mg/dL (1.6-2.4); Phosphorus, Blood 3.0 mg/dL (2.5-4.9); Potassium, Blood 4.1 mmol/L (3.5-5.5); Sodium, Blood 137 mmol/L (136-145)
--- NOTE | 2025-08-14 06:46 | NUR ---
Uneventful shift overnight , delroy turned off at approx 2130. Amio continuing per order . Pt made aware several times to please keep sp02 probe on , still continues to remove . MAP goal of > 60 maintained. No acute complaints at this time.
--- NOTE | 2025-08-14 09:59 | NUR ---
AM NOTE: THIS RN ASSUMED CARE OF PT AT APPROX 0700. PT ALERT, ORIENTED X4. ABLE TO USE CALL LIGHT APPROPRIATELY TO COMMUNICATE NEEDS. PT INTERMITTENTLY ANXIOUS/AGITATED REGARDING DIET ORDER/FOOD SERVED. PT OFFERED MULTIPLE ALTERNATIVE OPTIONS, DECLINED ALL OPTIONS STATING THEY WILL NOT BE SUFFICIENT. PT ABLE TO SWALLOW PO MEDS W/ WATER, INSISTS ON TAKING 1 PILL EVERY 10-15 MINS. VSS THIS AM. HR 80-110'S, AFIB ON MONITOR. BP STABLE, MAP >65. SPO2 >90% ON ROOM AIR. MCCONNELL CATH REMOVED THIS AM. PLANS TO DISCHARGE HOME WITH [facility] TOMORROW. PT IS MEDICAL W/O TELEMETRY STATUS AT THIS TIME.
--- NOTE | 2025-08-14 13:45 | NUR ---
PHYSICIAN CONTACT: THIS RN NOTIFIED BY PT THAT SHE EXPERIENCED AN ADDITIONAL EPISODE OF HEMOPTYSIS. 1 DARK RED BLOOD CLOT OBSERVED TO BE APPROX 1" IN DIAMETER. CALL PLACED TO DR. BAEZ. PLANS TO CONTINUE HOLDING PT'S ELIQUIS AT THIS TIME, DISCHARGE ON HOSPICE ARRANGED FOR TOMORROW (08/15).
--- NOTE | 2025-08-14 15:31 | NUR ---
TRANSFER TO 342: NO ACUTE EVENTS THIS SHIFT. SEE SHIFT ASSESSMENT/PREVIOUS NOTES FOR SHIFT DETAILS. AFTERNOON VSS. PT TRANSFERRED TO ROOM 342 BY PCT X2 VIA WHEELCHAIR. ALL BELONGINGS WHEELED WITH PT.
--- NOTE | 2025-08-14 15:44 | NUR ---
ICU TO MEDICAL FLOOR TRANSFER: PATIENT ARRIVED TO THE UNIT VIA WHEELCHAIR WITH HER BELONGINGS. ALERT AND INTERACTING WITH STAFF. SHE WAS ABLE TO SELF TRANSFER TO THE BED WITH MINIMAL ASSISTANCE. PATIENT SETTLED IN BED/ROOM, LINE ASSESS (PATENT), SKIN ASSESSED, CALL LIGHT PROVIDED, AND INSTRUCTED TO USE CALL LIGHT FOR ASSISTANCE. PATIENT IN BED, ALERT, VISITING WITH FAMILY/FRIENDS AT BEDSIDE, NO SIGNS OR SYMPTOMS OF DISTRESS, PLAN OF CARE ONGOING.
--- NOTE | 2025-08-14 17:43 | NUR ---
PALLIATIVE CARE VISIT: MET WITH PT TO PROVIDE SUPPORTIVE VIST. PT VERY TALKATIVE AND REMINSCING ABOUT HER FAMILY MEMBERS AND FOND MEMORIES. ENCOURAGED PT TO CONTINUE TO TALK ABOUT HER MEMORIES. PT IS NOT ON OXYGEN SHE DOES NOT GET SOB WITH CONVERSATION. SHE APPEARS COMFORTABLE AND HAS ONLY C/O HAVING TOO MUCH FOOD TO EAT. SHE PREFERS 6 SMALL MEALS A DAY. INFORMED SHE CAN REQUEST SNACKS ANYTIME. DISCUSSED CONCERNS WITH MD PT TO GO HOME WITH HOSPICE BUT PT MAY NEED TO DISCHARGE WITH O2 DEPENDING ON IF SHE NEEDS WITH ACTIVITY. MD TO PLACE HOME O2 EVAL. PLAN IS TO DC HOME TOMORROW WITH [facility].
[2025-08-15] MEDS ORDERED: DULoxetine HCL 30 MG Cap DR PO SCH (01:20)
[2025-08-15 04:18] VITALS: BP 86/69
[2025-08-15 05:06] LABS: BASOPHILS ABSOLUTE AUTO 0.04 K/mm3 (0.00-0.23); BASOPHILS PERCENT AUTO 1 % (0-2); EOSINOPHILS ABSOLUTE AUTO 0.18 K/mm3 (0.00-0.68); EOSINOPHILS PERCENT AUTO 4 % (0-6); Hematocrit 41.1 % (33.0-51.0); Hemoglobin 13.0 g/dL (11.5-16.0); IMMATURE GRAN ABSOLUTE AUTO 0.02 K/mm3 (0.00-0.10); IMMATURE GRAN PERCENT AUTO 1 % (0-1); LYMPHOCYTES ABSOLUTE AUTO 0.68 K/mm3 (0.84-5.20); LYMPHOCYTES PERCENT AUTO 16 % (21-46); MONOCYTES ABSOLUTE AUTO 0.61 K/mm3 (0.16-1.47); MONOCYTES PERCENT AUTO 14 % (4-13); Mean Corpuscular HGB Conc 31.6 g/dL (31.5-36.5); Mean Corpuscular Volume 94 fL (80-100); NEUTROPHILS ABSOLUTE AUTO 2.82 K/mm3 (1.96-9.15); NEUTROPHILS PERCENT AUTO 65 % (41-73); NRBC ABSOLUTE 0.00 K/mm3 (0.00-0.02); NRBC Auto 0.0 /100 WBC (0.0-0.2); Platelet Count 123 K/mm3 (150-400); RDW Coefficient Variation 13.2 % (11.7-14.2); RDW Standard Deviation 45.9 fL (35.1-46.3)
--- NOTE | 2025-08-15 05:58 | NUR ---
SHIFT SUMMARY A/Ox4, IRREGULAR HR, LOW SBP, OTHER VSS ON RA. PT REPORTS 10/10 BILATERAL SHOULDER AND NECK PAIN, PRN OXY MILDLY EFFECTIVE. MD CONTACTED PER PT REQUEST FOR DULOXETINE, NEW ORDER RECEIVED. PT APPEARED TO SLEEP [id number]. UP TO RESTROOM WITH 1P ASSIST/FWW. NO ACUTE CHANGES OVERNIGHT. SAFETY PRECAUTIONS IN PLACE.
[2025-08-15 06:12] LABS: Albumin, Blood 3.0 g/dL (3.4-5.0); Anion Gap 10 mmol/L (3-11); Blood Urea Nitrogen 33 mg/dL (8-24); CO2, Blood 26 mmol/L (21-32); Calcium, Blood 9.1 mg/dL (8.5-10.1); Chloride, Blood 105 mmol/L (98-108); Creatinine, Blood 2.10 mg/dL (0.40-1.00); Glucose, Blood 95 mg/dL (70-99); Magnesium, Blood 2.0 mg/dL (1.6-2.4); Phosphorus, Blood 3.0 mg/dL (2.5-4.9); Potassium, Blood 3.8 mmol/L (3.5-5.5); Sodium, Blood 137 mmol/L (136-145)
[2025-08-15 07:21] VITALS: BP 94/65
[2025-08-15] MEDS ORDERED: Amiodarone HCl200 MG PO (12:15)
[2025-08-15] MEDS ORDERED: BISA10S PR (12:15)
[2025-08-15] MEDS ORDERED: SENN187 PO (12:16)
[2025-08-15] MEDS ORDERED: EUTHYROX88 MCG PO (12:17)
--- NOTE | 2025-08-15 13:39 | NUR ---
DISCHARGE PT DISCHARGED HOME WITH PLAN TO ADMIT TO HOSPICE TOMORROW. IV REMOVED AND SITE APPEARS WNL. NEW RX FAXED TO [facility] PER PT REQUEST. MEDICATIONS AND DISCHARGE INSTRUCTIONS REVIEWED WITH PT AND PT DAUGHTER AT BEDSIDE. PT ABLE TO STAND AND AMBULATE TO INDEPENDENTLY. RN WHEELED PT DOWN TO DAUGHTER VEHICLE. PT REPORTS HAVING ALL BELONGINGS.
== END 2025-08-15 13:26 | disposition hospice, home (50) | DRG 286 ==
LOC: ER 10:51 → MEDS 10:52 → PCU 08-06 15:43 → MEDS 08-06 15:43 → ICUE 08-06 15:43 → MEDS 08-06 15:44 → PCU 08-07 17:02 → ICUE 08-09 11:54 → MEDS 08-14 15:17 → ENPENDDIS 08-15 11:16 → MEDS 08-15 13:26
PROVIDERS: Internal Medicine Nephrology; Physician Assistant; Student in an Organized Health Care Education/Training Program; ADMIT Internal Medicine
PROC: 4A023N6 Measurement of Cardiac Sampling and Pressure, Right Heart, Percutaneous Approach (ICD-10-PCS; principal; 2025-08-09)
PROC: 02HP32Z Insertion of Monitoring Device into Pulmonary Trunk, Percutaneous Approach (ICD-10-PCS; 2025-08-09)
PROC: 4A133B3 Monitoring of Arterial Pressure, Pulmonary, Percutaneous Approach (ICD-10-PCS; 2025-08-09)
PROC: 4A1239Z Monitoring of Cardiac Output, Percutaneous Approach (ICD-10-PCS; 2025-08-09)
PROC: 4A133R1 Monitoring of Arterial Saturation, Peripheral, Percutaneous Approach (ICD-10-PCS; 2025-08-10)
PROC: 3E033XZ Introduction of Vasopressor into Peripheral Vein, Percutaneous Approach (ICD-10-PCS; 2025-08-11)
DX: I13.0 Hypertensive heart and chronic kidney disease with heart failure and stage 1 through stage 4 chronic kidney disease, or unspecified chronic kidney disease (principal); I50.23 Acute on chronic systolic (congestive) heart failure; R57.0 Cardiogenic shock; I82.5Z3 Chronic embolism and thrombosis of unspecified deep veins of distal lower extremity, bilateral; N17.9 Acute kidney failure, unspecified; R04.2 Hemoptysis; E87.1 Hypo-osmolality and hyponatremia; I48.19 Other persistent atrial fibrillation; Z66 Do not resuscitate; Z51.5 Encounter for palliative care; J44.89 Other specified chronic obstructive pulmonary disease; I25.10 Atherosclerotic heart disease of native coronary artery without angina pectoris; I25.2 Old myocardial infarction; E78.5 Hyperlipidemia, unspecified; E03.9 Hypothyroidism, unspecified; K21.9 Gastro-esophageal reflux disease without esophagitis; M06.9 Rheumatoid arthritis, unspecified; D51.0 Vitamin B12 deficiency anemia due to intrinsic factor deficiency; I25.5 Ischemic cardiomyopathy; R80.9 Proteinuria, unspecified; I51.3 Intracardiac thrombosis, not elsewhere classified; E88.09 Other disorders of plasma-protein metabolism, not elsewhere classified; I27.20 Pulmonary hypertension, unspecified; N18.32 Chronic kidney disease, stage 3b; D63.1 Anemia in chronic kidney disease; Z99.81 Dependence on supplemental oxygen; Z90.49 Acquired absence of other specified parts of digestive tract; Z90.89 Acquired absence of other organs; Z90.710 Acquired absence of both cervix and uterus; Z98.890 Other specified postprocedural states; Z85.3 Personal history of malignant neoplasm of breast; Z96.653 Presence of artificial knee joint, bilateral; Z95.5 Presence of coronary angioplasty implant and graft; Z79.51 Long term (current) use of inhaled steroids; Z79.01 Long term (current) use of anticoagulants; Z79.84 Long term (current) use of oral hypoglycemic drugs; Z79.890 Hormone replacement therapy; Z79.899 Other long term (current) drug therapy; Z88.0 Allergy status to penicillin; Z88.6 Allergy status to analgesic agent; Z88.8 Allergy status to other drugs, medicaments and biological substances; Z91.0120 Allergy to eggs, unspecified; Z91.0110 Allergy to milk products, unspecified; Z28.21 Immunization not carried out because of patient refusal
CPT/HCPCS: 36415; 36600; 51702; 71045; 71046; 76770; 76937; 78452; 80048; 80053; 80069; 82550; 82570; 82803; 83735; 83880; 84100; 84300; 84439; 84443; 84484; 85014; 85018; 85025; 87428-QW; 92610; 93005; 93010; 93017; 93451; 93975; 94640; 94664; 94760; 94761; 94762; 96361; 96374; 96375; 99285-25; A9270; A9500; C1751; C1894; C8929; G0378; J0280; J0282; J1200; J1250; J1644; J1938; J2260; J2371; J2785; J2919; J3475; J3480; J7030; J7040; J7050; J7070; J7120; Q9957